=== PATIENT | male | born 1955 | race Caucasian/White ===

== ENCOUNTER → 2022-08-14 13:32 | Outpatient (CLI) | payer MEDICARE, OTHER, SELFPAY | PROVIDERS: Family Provider Internal Medicine; PCP Internal Medicine; Referring Provider Urology; Visit Provider Urology | DX: N20.0 Calculus of kidney (principal) | CPT/HCPCS: 87086 ==

== ENCOUNTER → 2022-08-25 09:11 | Outpatient (CLI) | payer MEDICARE, OTHER, SELFPAY ==
--- NOTE | 2022-08-25 | DI.US.S_ITS ---
PROCEDURE: US RENAL COMPLETE INDICATIONS: HISTORY OF NEPHROLITHIASIS. RIGHT FLANK PAIN X 3 WEEKS. TECHNIQUE: Real-time scanning was performed of the kidneys and bladder, with image documentation. COMPARISON: Outside Film, CR, XR ABDOMEN 1 VIEW, 06/26/2019, 12:05. [facility], CT, KIDNEY/ URETER/BLADDER, 03/18/2016, 12:10. FINDINGS: Kidneys: Kidneys are normal in size. Right kidney measures 12.5 cm long; left kidney measures 13.3 cm long. Right renal cortical thickness is 1.9 cm; left renal cortical thickness is 2.0 cm. Renal cortical echotexture is normal. The left kidney demonstrates moderate hydronephrosis as well as proximal left hydroureter. It persists postvoid. The right kidney demonstrates mild pelvocaliectasis as well as mild right proximal hydroureter, less prominent when compared to the left. These are persistent on postvoid images. There is appearance of a 1.9 cm calcification within the right kidney. No stones are identified on the left. Septated cyst is noted within the left kidney measuring 1.7 x 1.5 x 1.5 cm. Simple appearing smaller cyst is also noted on the left. Bladder: Pre-void bladder volume is 554 mL. Post-void residual is 122 mL. Pre-void images demonstrate no intraluminal masses or stones. On pre-void images, bilateral ureteral jets are noted with color Doppler interrogation. (Of note, ureteral jets may not be detectable in up to 25% of cases due to insufficient differences in specific gravity between ureteral and bladder urine). Miscellaneous: No free pelvic fluid. IMPRESSION: Right hydronephrosis and hydroureter persisting postvoid as well as right mild pelvocaliectasis and proximal hydroureter as described above. 1.9 cm right renal calcification is present. Septated left renal cyst. Dictated by: Rocio Hinkle M.D. on 08/25/2022 at 10:58 Approved by: Rocio Hinkle M.D. on 08/25/2022 at 11:02
== END ==
PROVIDERS: Family Provider Internal Medicine; PCP Internal Medicine; Referring Provider Urology; Visit Provider Urology
DX: N20.0 Calculus of kidney (principal); N28.1 Cyst of kidney, acquired
CPT/HCPCS: 76770

== ENCOUNTER → 2023-04-14 07:47 | Outpatient (CLI) | payer MEDICARE, OTHER, SELFPAY ==
--- NOTE | 2023-04-14 07:48 | DI.CT.S_ITS ---
PROCEDURE: CT ABDOMEN PELVIS WO CON INDICATIONS: Personal history of urinary calculi TECHNIQUE: Axial sections were acquired from the lung bases to the pubic symphysis. Coronal and sagittal reformats were performed. For radiation dose reduction, the following was used: automated exposure control, adjustment of mA and/or kV according to patient size. COMPARISON: CT 03/18/2016. FINDINGS: Image quality: Excellent. Lung bases: Unremarkable. Heart: No significant findings. URINARY: Right Kidney: 1.4 centimeter stone within the inferior pole (577 Hounsfield unit). Right Ureter: No hydroureter. Left Kidney: Layering, punctate hyperattenuating foci in the renal pelvis. Moderate hydronephrosis. Left Ureter: Moderate hydroureter. No obstructing stone at the UVJ. Bladder: 1.5 centimeter stone layering within the bladder (902 Hounsfield unit). ABDOMEN: Liver: Unremarkable. Gallbladder: Cholelithiasis without wall thickening or adjacent fat stranding to suggest acute cholecystitis. Biliary ducts: Unremarkable. Pancreas: Unremarkable. Spleen: Unremarkable. Adrenal Glands: 2 centimeter right adrenal nodule with indeterminate attenuation (19 Hounsfield unit). This is stable since 2016 and therefore statistically benign. Stomach and Bowel: Stomach, small bowel loops, and colon are unremarkable. Peritoneum: No abnormal intraperitoneal fluid. No free air. Ventral Wall: Small umbilical hernia containing fat. Abdominal Nodes: No enlarged retroperitoneal or mesenteric lymph nodes. Vessels: Aorta and inferior vena cava are normal in size. PELVIS: Pelvic Organs: Unremarkable. Pelvic Nodes: Unremarkable. Miscellaneous: No inguinal hernias are seen. Bones: Unremarkable. IMPRESSION: Moderate left-sided hydronephroureter, without visualized obstructing stone. Infection not excluded in this setting, possibly from bacteriostatic products. Correlate with urinalysis. 1.4 centimeter stone in the inferior calyx of the left kidney. 1.5 centimeter stone within the bladder. Cholelithiasis without wall thickening or adjacent fat stranding to suggest acute cholecystitis. Dictated by: Albert Khan M.D. on 04/14/2023 at 8:29 Approved by: Albert Khan M.D. on 04/14/2023 at 8:37
== END ==
PROVIDERS: Family Provider Internal Medicine; Referring Provider Urology; Visit Provider Urology
DX: N13.2 Hydronephrosis with renal and ureteral calculous obstruction (principal); N21.0 Calculus in bladder; K80.20 Calculus of gallbladder without cholecystitis without obstruction; K42.9 Umbilical hernia without obstruction or gangrene; E27.9 Disorder of adrenal gland, unspecified; Z87.442 Personal history of urinary calculi
CPT/HCPCS: 74176

== ENCOUNTER 2023-04-21 08:20 | Emergency (ER) | payer MEDICARE, OTHER, SELFPAY ==
[2023-04-21 08:29] VITALS: BP 188/95; PULSE 78; RESP 16; TEMP 36.9; O2SAT 99; BMI 40.7
[2023-04-21 08:30] VITALS: BP 169/87; PULSE 71; O2SAT 99
[2023-04-21 08:56] LABS: Appearance Urine UA CLEAR; Bilirubin Urine UA NEGATIVE (NEGATIVE); Color Urine UA YELLOW; Glucose Urine UA NEGATIVE (Negative); Ketones Urine UA NEGATIVE (NEGATIVE); Leukocyte Esterase Urine UA 1+ (NEGATIVE); Nitrite Urine UA NEGATIVE (Negative); Occult Blood Urine UA TRACE-INTACT (Negative); Protein Urine UA TRACE (Negative); Urobilinogen Urine UA 0.2 E.U./dL (0.2); pH Urine UA 5.5 (4.5-8.0)
[2023-04-21 08:58] LABS: Bacteria Urine Few (2-10); Culture Indicated Urine Specimen Cultured; RBC Urine 0-1/HPF (0-5/HPF); Squamous Epithelial Cell Urine 0-1 /HPF (0-5/HPF); WBC Urine 10-30/HPF (0-5/HPF)
--- NOTE | 2023-04-21 09:23 | ED_ITS ---
HPI - Male Genitourinary General Chief complaint: Urogenital-Male Stated complaint: kidney stone in bladder/bladder full can't urinate Time Seen by Provider: 04/21/23 08:51 History of Present Illness HPI Narrative: Patient here with . Complains of urinary retention. He states yesterday he started having dribbling with his urination at night but no discomfort. Awoke this morning unable to urinate. In the past week patient has seen a urologist/physician bilingual sales assistant Gena Palafox, CT was done April 14, 2023. Patient is on finasteride for BPH. He states his urologist prescribed him antibiotic and was supposed to pick it up yesterday. He has not done that yet. No fever chills. No back pain. Bladder scan done by nurse. Das catheter ordered. Patient states he is scheduled for procedure to remove a bladder stone in [place]. He does not know the date or the name of the procedure yet. Patient in no distress Related Data Home Medications Medication Instructions Recorded Confirmed nitrofurantoin macrocrystal 50 mg 50 mg PO BID ##0 12/01/16 capsule Review of Systems Review of Systems Narrative: GENERAL: negative chills, fatigue, malaise, fever, sweats. HEENT: negative sinus pain, ear pain, sore throat RESPIRATORY: negative dyspnea, cough CARDIOVASCULAR: negative chest pain, palpitations GASTROINTESTINAL: negative nausea, vomiting, abdominal pain : negative dysuria, frequency, hematuria, positive retention MUSCULOSKELETAL: negative muscle or bony pain SKIN: negative rash, skin lesions NEUROLOGIC: negative weakness, numbness ROS Unobtainable: All systems reviewed & are unremarkable except as noted in HPI and below Exam Narrative Exam Narrative: GENERAL: in no distress, not toxic not dyspneic HEAD: Normocephalic. EYES: Pupils equal round t. NECK: Trachea midline. CARDIOVASCULAR: Regular rate and rhythm without murmurs RESPIRATORY: Clear to auscultation. Breath sounds equal bilaterally. No wheezes, rales, or rhonchi. GASTROINTESTINAL: Abdomen soft, non-tender, abdomen soft nontender no peritoneal signs. No suprapubic tenderness. No CVA tenderness BACK: No flank tenderness. NEURO: AOx4. SKIN: Warm and dry PSYCH: Not anxious, is cooperative Initial Vital Signs Initial Vital Signs: Vital Signs Temperature 98.5 F 04/21/23 08:29 Pulse Rate 78 04/21/23 08:29 Respiratory Rate 16 04/21/23 08:29 Blood Pressure 188/95 H 04/21/23 08:29 Pulse Oximetry 99 04/21/23 08:29 Oxygen Delivery Method Room Air 04/21/23 08:29 Course Orders Ordered: Discontinued Medications Levofloxacin (Levofloxacin 250 Mg Tablet) 250 mg PO NOW ONE Stop: 04/21/23 09:21 Tamsulosin HCl (Tamsulosin 0.4 Mg Capsule) 0.4 mg PO NOW ONE Stop: 04/21/23 09:21 Vital Signs Vital signs: Vital Signs - 8 hr 04/21/23 08:29 04/21/23 08:30 04/21/23 08:30 Temperature 98.5 F Pulse Rate 78 71 Respiratory Rate 16 Blood Pressure 188/95 H 169/87 H Pulse Oximetry 99 99 Oxygen Delivery Method Room Air Room Air MDM - Male Genitourinary Lab Data Labs: Lab Results 04/21/23 Range/Units 08:30 Urine Color Yellow Urine Appearance Clear Urine pH 5.5 (4.5-8.0) Ur Specific [place] 1.020 (1.000-1.035) Urine Protein Trace H (Negative) Urine Glucose (UA) Negative (Negative) g/dL Urine Ketones Negative (NEGATIVE) Urine Occult Blood Trace-intact (Negative) Urine Nitrate Negative (Negative) Urine Bilirubin Negative (NEGATIVE) Urine Urobilinogen 0.2 (0.2) E.U./dL Ur Leukocyte Esterase 1+ H (NEGATIVE) Urine RBC 0-1/hpf (0-5/HPF) Urine WBC 10-30/hpf H (0-5/HPF) Ur Squamous Epith Cells 0-1 /hpf (0-5/HPF) Urine Bacteria Few (2-10) H (None) Ur Culture Indicated? Specimen cultured MDM Narrative Medical decision making narrative: Patient here with . Complains of urinary retention. He states yesterday he started having dribbling with his urination at night but no discomfort. Awoke this morning unable to urinate. In the past week patient has seen a urologist/physician bilingual sales assistant Gena Palafox, CT was done April 14, 2023. Patient is on finasteride for BPH. He states his urologist prescribed him antibiotic and was supposed to pick it up yesterday. He has not done that yet. No fever chills. No back pain. Bladder scan done by nurse. Das catheter ordered. Patient states he is scheduled for procedure to remove a bladder stone in [place]. He does not know the date or the name of the procedure yet. Patient in no distress After history and exam bladder scan Das catheter urinalysis MDM CC: Urinary retention Complicating co-morbidities: Recent diagnosis bladder stone Data collected from: Patient Medical records reviewed: April 14, 2023 CT scan imaging done here Differential considered: Includes but not limited to acute UTI BPH bladder stone blockage cystitis urinary retention Exam documented above, pertinent findings include: Nontender abdomen. Bladder scan showed 690 mL before Das catheter Lab Test results independently reviewed as above. Pertinent findings: Urinalysis positive leuk esterase negative nitrate WBC 10 -30 Consultations: 9:15 a.m.. Spoke with Urology on-call for patient's urologist, dr lau, place patient on antibiotics if he is not already on 1. Placed on Flomax or equivalent if not already on 1. No imaging or blood work indicated. Patient to be seen in their office this week for re-evaluation. Treatments: Das catheter Re-evaluations: 9:25 a.m.. Spoke with patient results of my discussion with urologist and urinary test today. He states he already has prescription waiting for him by his urologist you was supposed to pick it up yesterday. He is on finasteride already for BPH. Return precautions reviewed with him. Nontoxic discharge. He desires discharge home. Discussion: Appropriate for discharge home. Patient already has prescription for antibiotics provided by his urologist as well as finasteride. Return precautions reviewed with him. I did review with urologist. Patient is comfortable with plan. Feels much better at this time. He desires discharge home Diagnosis: Acute urinary retention/acute UTI Discharge Plan Departure Patient Disposition: Home Clinical Impression: Acute retention of urine, Urinary tract infection Instructions: How to Care for Your Das Catheter -- Male Activity Restrictions/Additional Instructions: Please package pick up the antibiotic prescription from the pharmacy as instructed by your urologist today. Please call her office today to schedule appointment this week. You have a Das catheter in place and will need it re-evaluated to be removed by your urologist. Dr Lau was on-call today for your urologist and has made these instructions for you. Return if worse if any questions or concerns Prescriptions: No Action nitrofurantoin macrocrystal 50 MG capsule 50 mg PO BID Qty: 0 Referrals: Gena Palafox PA-C [Non-Staff] - Provider,Humberto JACKMAN [Primary Care Provider] - Stand Alone Forms: Patient Portal/API
[2023-04-21 09:38] VITALS: BP 132/71; PULSE 67; RESP 18; O2SAT 97
--- NOTE | 2023-04-21 09:44 | PC.NURSE ---
Educated and assisted patient to switch catheter to leg bag, sterile technique utilized. Pt verbalizes understanding, states he plans to stick to leg bag.
== END 2023-04-21 09:48 | disposition home or self-care (01) ==
PROVIDERS: Emergency Provider Emergency Medicine; Family Provider Internal Medicine
DX: N39.0 Urinary tract infection, site not specified (principal); R33.9 Retention of urine, unspecified
CPT/HCPCS: 51798; 81001; 87086; 99282; 99283

== ENCOUNTER 2023-05-24 16:18 | Inpatient (IN) | payer MEDICARE, OTHER, SELFPAY ==
[2023-05-24] VITALS (15 sets, daily range): BP systolic 132–159; BP diastolic 68–81; PULSE 91–114; RESP 17–28; TEMP 37.2–39.3; O2SAT 91–97; BMI 40.6
--- NOTE | 2023-05-24 16:30 | DI.RAD.S_ITS ---
PROCEDURE: XR CHEST 1V INDICATIONS: suspected sepsis TECHNIQUE: One view of the chest was acquired. COMPARISON: [facility], , CHEST 2 VIEW, 11/24/2016, 16:38. FINDINGS: Surgical changes and devices: None. Lungs and pleura: Lungs are clear. No pleural effusions or pneumothorax. Mediastinum: Mediastinal contours appear normal. Heart size is normal. Bones and chest wall: No suspicious bony lesions. Overlying soft tissues appear unremarkable. IMPRESSION: No acute cardiopulmonary disease. Dictated by: Maritza Damon M.D. on 05/24/2023 at 16:53 Approved by: Maritza Damon M.D. on 05/24/2023 at 16:54
[2023-05-24 16:43] LABS: Add Manual Diff / Slide Review NO; Basophils Absolute Auto 100 /uL (0-100); Basophils Percent Auto 0.3 % (0-2); Eosinophils Absolute Auto 0 /uL (0-450); Hematocrit 45.4 % (41-53); Hemoglobin 15.9 g/dL (13.5-17.5); Lymphocytes Absolute Auto 500 /uL (1100-4500); Lymphocytes Percent Auto 2.6 % (25-40); Mean Corpuscular Hemoglobin 32.1 PG (26-34); Mean Corpuscular Volume 91.8 fL (80-100); Monocytes Absolute Auto 1700 /uL (0-900); Monocytes Percent Auto 8.8 % (3-14); Neutrophils Absolute Auto 16900 /uL (1500-7000); Neutrophils Percent Auto 88.3 % (50-75); Platelet Count 174 X10^3/uL (150-400); Red Blood Cell Count 4.94 X10^6/uL (4.5-5.9); Red Cell Distribution Width 13.8 % (11.6-14.8); White Blood Cell Count 19.1 X10^3/uL (4.5-11.0)
[2023-05-24 16:50] LABS: INR 1.2 (0.9-1.3); Prothrombin Time 14.1 SECONDS (10.1-12.7)
[2023-05-24] MEDS: SODIUM CHLORIDE 0.9% 1,000 ML 1000 ML IV ×2 (16:50→18:19)
[2023-05-24 16:52] LABS: PTT Partial Thromboplastin Tim 28 SECONDS (26-36)
[2023-05-24 16:54] LABS: Alanine Aminotransferase 32 IU/L (<50); Albumin 4.2 g/dL (3.5-5.0); Albumin Globulin Ratio 1.3 (1.0-2.8); Alkaline Phosphatase 125 U/L (38-126); Aspartate Aminotransferase 27 IU/L (17-59); BUN Creatinine Ratio 19.1 (6-22); Bilirubin Total 1.8 mg/dL (0.2-1.3); Blood Urea Nitrogen 17 mg/dL (9-20); Calcium 9.6 mg/dL (8.4-10.2); Carbon Dioxide 23 mmol/L (22-32); Chloride 102 mmol/L (98-107); Estimated Glomerular Filt Rate > 60 mL/min (>60); Globulin 3.3 g/dL (1.7-4.1); Glucose 177 mg/dL (80-110); HEMOLYSIS < 15 (0-50); Lactate (Lactic Acid) 1.4 mmol/L (0.7-2.1); Lipase 29 U/L (23-300); Potassium 3.8 mmol/L (3.4-5.1); Sodium 134 mmol/L (137-145); Total Protein 7.5 g/dL (6.3-8.2)
--- NOTE | 2023-05-24 17:24 | ED_ITS ---
HPI - Nausea/Vomiting/Diarrhea General Chief complaint: Nausea/Vomiting/Diarrhea Stated complaint: SENT BY [facility]/FEVER POST CATHEDAR REMOVAL/N/V/D Time Seen by Provider: 05/24/23 16:46 Source: patient Mode of arrival: Ambulatory History of Present Illness HPI Narrative: Patient is a 67-year-old male with history of BPH and recent bladder stone removal presents today with body aches fever chills generally not feeling well. He initially had a Das catheter that was placed May 01 in the ED which he says came out on its own and only lasted 1 day. Then had a procedure 2 weeks ago for a bladder stone removal he had a Das catheter placed it lasted for 2 weeks he was seen at [facility] was taken out 5 days ago. 3 days ago he started having fevers chills rigors and sweats. He is had some nausea vomiting. Significant decrease in intake. Presents today tachycardic with fever of 102. Related Data Home Medications Medication Instructions Recorded Confirmed nitrofurantoin macrocrystal 50 mg 50 mg PO BID ##0 12/01/16 capsule Allergies Allergy/AdvReac Type Severity Reaction Status Date / Time No Known Drug Allergies Allergy Verified 05/24/23 16:25 Review of Systems Review of Systems ROS Unobtainable: All systems reviewed & are unremarkable except as noted in HPI and below Patient History Social History Smoking Status: Former smoker Smoking Status: Former smoker alcohol intake frequency: a few times a month Alcohol type: beer Exam Initial Vital Signs Initial Vital Signs: Vital Signs Pulse Rate 114 H 05/24/23 16:24 Pulse Oximetry 95 05/24/23 16:24 GENERAL: Alert 67-year-old male no acute distress HEENT: Head atraumatic,EOMI, pupils reactive, face symmetric, moist mucous membranes CARDIOVASCULAR: Regular rate and rhythm without murmurs, rubs or gallops. RESPIRATORY: Breath sounds equal bilaterally, no wheezes rales or rhonchi. ABDOMEN: Soft, nontender. Normoactive bowel sounds all 4 quadrants. No guarding or rebound. : No CVA tenderness EXTREMITIES: Normal range of motion, no clubbing or edema. Neurovascularly intact NEUROLOGICAL: Alert and oriented x4. No focal deficits SKIN: Warm, dry, no laceration, no petechiae, no rashes or lesions. Course Orders Ordered: ED Orders 05/24/23 16:30 XR chest 1V Stat EKG-12 Lead Stat RT Consult Eval and Treat NOW 05/24/23 16:31 Complete Blood Count AUTO DIFF Stat Comprehensive Metabolic Panel Stat Lactate (Lactic Acid) Stat Lipase Stat PTT Partial Thromboplastin [place] Stat Procalcitonin Stat Prothrombin Time INR Stat 05/24/23 16:45 Blood Culture Stat 05/24/23 17:35 Ictotest Urine Stat Urine Culture Stat Urine Microscopic Stat Sodium Chloride (Normal Saline 0.9%) 1,000 mls @ 1,000 mls/hr IV BOLUS ONE Stop: 05/24/23 18:58 Last Admin: 05/24/23 18:19 Dose: 1,000 mls/hr Documented By: LUCY Ondansetron HCl (Ondansetron 4 Mg/2 Ml Inj) 4 mg IV NOW PRN PRN Reason: Nausea And Vomiting Ondansetron HCl (Ondansetron 4 Mg Odt) 4 mg SL NOW PRN PRN Reason: Nausea And Vomiting Discontinued Medications Sodium Chloride (Normal Saline 0.9%) 1,000 mls @ 1,000 mls/hr IV BOLUS ONE Stop: 05/24/23 17:29 Last Infusion: 05/24/23 18:19 Dose: 0 mls/hr Documented By: Admin: 05/24/23 16:50 Dose: 1,000 mls/hr Documented By: CARLOS Ceftriaxone Sodium 1,000 mg/ (Sodium Chloride) 100 mls @ 200 mls/hr IV NOW ONE Stop: 05/24/23 17:41 Last Admin: 05/24/23 18:22 Dose: 200 mls/hr Documented By: LUCY Vital Signs Vital signs: Vital Signs - 8 hr 05/24/23 16:25 05/24/23 16:24 05/24/23 16:25 Temperature 102.7 F H Pulse Rate 113 H 114 H Respiratory Rate 22 Blood Pressure 159/68 H 159/68 H Pulse Oximetry 94 95 Oxygen Delivery Method Room Air 05/24/23 16:25 05/24/23 16:30 05/24/23 16:30 Temperature Pulse Rate 114 H 114 H Respiratory Rate Blood Pressure 148/71 H Pulse Oximetry 93 94 Oxygen Delivery Method 05/24/23 16:45 05/24/23 16:58 05/24/23 16:58 Temperature Pulse Rate 108 H 103 H Respiratory Rate 24 21 Blood Pressure 133/79 Pulse Oximetry 96 92 Oxygen Delivery Method 05/24/23 17:00 05/24/23 17:00 05/24/23 17:15 Temperature Pulse Rate 104 H 101 H Respiratory Rate 28 H 22 Blood Pressure 132/80 Pulse Oximetry 93 91 Oxygen Delivery Method 05/24/23 17:30 05/24/23 17:45 Temperature Pulse Rate 104 H 98 H Respiratory Rate 19 Blood Pressure Pulse Oximetry 96 96 Oxygen Delivery Method MDM - Nausea/Vomiting/Diarrhea Lab Data 05/24/23 16:31 05/24/23 16:31 Labs: Lab Results 05/24/23 05/24/23 05/24/23 Range/Units 16:31 16:31 16:31 WBC 19.1 H (4.5-11.0) X10^3/uL RBC 4.94 (4.5-5.9) X10^6/uL Hgb 15.9 (13.5-17.5) g/dL Hct 45.4 (41-53) % MCV 91.8 (80-100) fL MCH 32.1 (26-34) PG MCHC 35.0 (30-36) % RDW 13.8 (11.6-14.8) % Plt Count 174 (150-400) X10^3/uL Neut % (Auto) 88.3 H (50-75) % Lymph % (Auto) 2.6 L (25-40) % [place] % (Auto) 8.8 (3-14) % Eos % (Auto) 0.0 L (2-4) % Baso % (Auto) 0.3 (0-2) % Neut # (Auto) 63403 H (5948-2666) /uL Lymph # (Auto) 500 L (5825-9573) /uL [place] # (Auto) 1700 H (0-900) /uL Eos # (Auto) 0 (0-450) /uL Baso # (Auto) 100 (0-100) /uL PT 14.1 H (10.1-12.7) SECONDS INR 1.2 (0.9-1.3) APTT 28 (26-36) SECONDS Sodium 134 L (137-145) mmol/L Potassium 3.8 (3.4-5.1) mmol/L Chloride 102 (98-107) mmol/L Carbon Dioxide 23 (22-32) mmol/L BUN 17 (9-20) mg/dL Creatinine 0.89 (0.66-1.25) mg/dL Estimated GFR > 60 (>60) mL/min BUN/Creatinine Ratio 19.1 (6-22) Glucose 177 H (80-110) mg/dL Lactate (0.7-2.1) mmol/L Calcium 9.6 (8.4-10.2) mg/dL Total Bilirubin 1.8 H (0.2-1.3) mg/dL AST 27 (17-59) IU/L ALT 32 (<50) IU/L Alkaline Phosphatase 125 (38-126) U/L Total Protein 7.5 (6.3-8.2) g/dL Albumin 4.2 (3.5-5.0) g/dL Globulin 3.3 (1.7-4.1) g/dL Albumin/Globulin Ratio 1.3 (1.0-2.8) Lipase 29 (23-300) U/L Procalcitonin 0.80 H (<0.5) ng/mL Ur Bilirubin Confirm (Negative) Urine RBC (0-5/HPF) Urine WBC (0-5/HPF) Ur Squamous Epith Cells (0-5/HPF) Urine Bacteria (None) 05/24/23 05/24/23 05/24/23 Range/Units 16:31 17:35 17:35 WBC (4.5-11.0) X10^3/uL RBC (4.5-5.9) X10^6/uL Hgb (13.5-17.5) g/dL Hct (41-53) % MCV (80-100) fL MCH (26-34) PG MCHC (30-36) % RDW (11.6-14.8) % Plt Count (150-400) X10^3/uL Neut % (Auto) (50-75) % Lymph % (Auto) (25-40) % [place] % (Auto) (3-14) % Eos % (Auto) (2-4) % Baso % (Auto) (0-2) % Neut # (Auto) (0680-0761) /uL Lymph # (Auto) (1657-4933) /uL [place] # (Auto) (0-900) /uL Eos # (Auto) (0-450) /uL Baso # (Auto) (0-100) /uL PT (10.1-12.7) SECONDS INR (0.9-1.3) APTT (26-36) SECONDS Sodium (137-145) mmol/L Potassium (3.4-5.1) mmol/L Chloride (98-107) mmol/L Carbon Dioxide (22-32) mmol/L BUN (9-20) mg/dL Creatinine (0.66-1.25) mg/dL Estimated GFR (>60) mL/min BUN/Creatinine Ratio (6-22) Glucose (80-110) mg/dL Lactate 1.4 (0.7-2.1) mmol/L Calcium (8.4-10.2) mg/dL Total Bilirubin (0.2-1.3) mg/dL AST (17-59) IU/L ALT (<50) IU/L Alkaline Phosphatase (38-126) U/L Total Protein (6.3-8.2) g/dL Albumin (3.5-5.0) g/dL Globulin (1.7-4.1) g/dL Albumin/Globulin Ratio (1.0-2.8) Lipase (23-300) U/L Procalcitonin (<0.5) ng/mL Ur Bilirubin Confirm Negative (Negative) Urine RBC 10-30/hpf H (0-5/HPF) Urine WBC >100/hpf H (0-5/HPF) Ur Squamous Epith Cells 1-5 /hpf (0-5/HPF) Urine Bacteria Moderate (10-30) H (None) Urine Dip Bedside Urine Glucose Negative Bedside Urine Bilirubin + 1 Bedside Urine Ketone ++ 40 Urine Specific [place] 1.020 Bedside Urine Occult Blood +++ Bedside Urine pH 6 Bedside Urine Protein ++ 100 Bedside Urine Urobilinogen - Negative Bedside Urine Nitrite + Positive Bedside Urine Leukocytes +++ 500 Esterase Imaging Data Chest x-ray: Radiologist's Impression: PROCEDURE:? XR CHEST 1V ? INDICATIONS:? suspected sepsis ? TECHNIQUE:? One view of the chest was acquired.? ? COMPARISON:? [facility], , CHEST 2 VIEW, 11/24/2016, 16:38. ? FINDINGS:? ? Surgical changes and devices:? None.? ? Lungs and pleura:? Lungs are clear.? No pleural effusions or pneumothorax.? ? Mediastinum:? Mediastinal contours appear normal.? Heart size is normal.? ? Bones and chest wall:? No suspicious bony lesions.? Overlying soft tissues appear unremarkable.? ? IMPRESSION:? No acute cardiopulmonary disease. ? ? Dictated by: Maritza Damon M.D. on 05/24/2023 at 16:53 ? ? ECG Data Interpretation: Normal sinus rhythm rate rate 108 GA interval 156 QRS [address] changes no T-wave inversions persistent Q-waves 3 AVF similar to previous EKGs MDM Narrative Medical decision making narrative: Patient 67-year-old male with recent Das catheter removed a few days ago presenting today with sepsis criteria. Febrile 102 heart rate 113. He took Tylenol prior to arrival. He is had fevers chills and rigors. He has a UTI with nitrates and blood. He is leukocytosis of 19, elevated bilirubin 1.8 normal lactic acid 1.4 elevated procalcitonin 0.8. He is only urinated a small out. Likely slightly dehydrated although no evidence of SAMIR on blood work. No evidence of severe sepsis he is not hypotensive therefore sepsis fluids were not given bit he is given IV fluids and [address] Galarza updated patient's symptoms test results and accepts patient. qSOFA (Quick SOFA) Score for Sepsis from [email or web address] on 05/24/2023 All calculations should be rechecked by clinician prior to use RESULT SUMMARY: 1 points qSOFA Score Not High Risk If sepsis is still suspected, continue to monitor, evaluate, and initiate treatment as appropriate, including serial qSOFA assessments. INPUTS: Altered mental status ?> 0 = No Respiratory rate >=2 ?> 1 = Yes Systolic BP <=00 ?> 0 = No Discharge Plan Departure Patient Disposition: Admitted As Inpatient Clinical Impression: Acute UTI
[2023-05-24 18:12] LABS: Ictotest Urine Negative (Negative)
[2023-05-24 18:15] LABS: Bacteria Urine Moderate (10-30); RBC Urine 10-30/HPF (0-5/HPF); Squamous Epithelial Cell Urine 1-5 /HPF (0-5/HPF); WBC Urine >100/HPF (0-5/HPF)
[2023-05-24] MEDS: cefTRIAXone 1,000 MG in SODIUM CHLORIDE 0.9% 100 ML 200 MG IV (18:22)
--- NOTE | 2023-05-24 19:43 | P.HP_ITS ---
History of Present Illness History of Present Illness Date Patient Seen: 05/24/23 Time Patient Seen: 20:03 Date of Onset of Symptoms: 05/19/23 Chief complaint: SENT BY [facility]/FEVER POST CATHEDAR REMOVAL/N/V/D Narrative: Patient with a Hx of recurrent UTIs due to bladder stone and enlarged prostate with chronic retention, who had bladder stone removal 2 weeks ago. He was with Das catheter up until 5 days ago. Three days ago developed fever, sweats, chills, nausea. In the past few days all of these symptoms worsened and he presented to ED tachycardic and febrile with leukocytosis. In the ED had IVFs and empiric Rocephin. [facility] Social History Smoking Status: Former smoker Meds Home Medications and Allergies Home Medications Medication Instructions Recorded Confirmed Type nitrofurantoin macrocrystal 50 mg 50 mg PO BID ##0 12/01/16 History capsule alfuzosin 10 mg tablet,extended 10 mg PO BEDTIME 05/24/23 05/24/23 History release 24 hr alfuzosin 10 mg tablet,extended 10 mg PO DAILY 05/24/23 05/24/23 History release 24 hr amlodipine 10 mg tablet 10 mg PO BEDTIME 05/24/23 05/24/23 History aspirin 81 mg tablet,delayed 81 mg PO BID 05/24/23 History release atorvastatin 40 mg tablet 40 mg PO BEDTIME 05/24/23 05/24/23 History finasteride 5 mg tablet 5 mg PO BEDTIME 05/24/23 05/24/23 History lisinopril 40 mg tablet 40 mg PO BEDTIME 05/24/23 05/24/23 History metoprolol succinate 50 mg 50 mg PO DAILY 05/24/23 05/24/23 History tablet,extended release 24 hr Allergies Allergy/AdvReac Type Severity Reaction Status Date / Time No Known Drug Allergies Allergy Verified 05/24/23 16:25 Review of Systems Constitutional Constitutional: Reports anorexia, Reports chills, Reports fever(s), Reports malaise and Reports night sweats Respiratory Respiratory: Denies stridor Gastrointestinal Gastrointestinal: Reports nausea Genitourinary Genitourinary: Reports difficulty urinating, Reports dysuria and Reports urinary frequency Exam Vital Signs (past 8 hours): - 05/24/23 16:25 05/24/23 16:24 05/24/23 16:25 Temperature 102.7 F H Pulse Rate 113 H 114 H Respiratory Rate 22 Blood Pressure 159/68 H 159/68 H Pulse Oximetry 94 95 Oxygen Delivery Method Room Air 05/24/23 16:25 05/24/23 16:30 05/24/23 16:30 Temperature Pulse Rate 114 H 114 H Respiratory Rate Blood Pressure 148/71 H Pulse Oximetry 93 94 Oxygen Delivery Method 05/24/23 16:45 05/24/23 16:58 05/24/23 16:58 Temperature Pulse Rate 108 H 103 H Respiratory Rate 24 21 Blood Pressure 133/79 Pulse Oximetry 96 92 Oxygen Delivery Method 05/24/23 17:00 05/24/23 17:00 05/24/23 17:15 Temperature Pulse Rate 104 H 101 H Respiratory Rate 28 H 22 Blood Pressure 132/80 Pulse Oximetry 93 91 Oxygen Delivery Method 05/24/23 17:30 05/24/23 17:45 05/24/23 18:00 Temperature Pulse Rate 104 H 98 H 94 H Respiratory Rate 19 17 Blood Pressure Pulse Oximetry 96 96 95 Oxygen Delivery Method 05/24/23 18:15 05/24/23 18:28 05/24/23 18:28 Temperature 99.4 F Pulse Rate 93 H 92 H Respiratory Rate 17 24 Blood Pressure 137/81 Pulse Oximetry 95 95 Oxygen Delivery Method Oxygen Delivery Method Room Air Narrative Exam Narrative: Patient seen in telemedicne visit, using an audio and video link and auscultatory sound files. Const General: cooperative and comfortable Orientation: oriented x3 HENMT Head: normal to inspection Eyes Pupils: PERRL Neck Neck: normal visual inspection Resp Effort & Inspection: normal respiratory effort and tachypneic Auscultation: clear to auscultation bilaterally Cardio Rate: tachycardic Rhythm: regular rhythm GI Inspection: normal to inspection Skin General: no rashes or lesions noted Neuro General: no focal motor deficits Cognition: normal cognition Extrem General: normal to inspection Psych Mental Status: mental status grossly normal Affect: normal affect Attitude: cooperative Objective Labs 05/24/23 16:31 05/24/23 16:31 Labs: Laboratory Results - last 24 hr 05/24/23 05/24/23 05/24/23 16:31 16:31 16:31 WBC 19.1 H RBC 4.94 Hgb 15.9 Hct 45.4 MCV 91.8 MCH 32.1 MCHC 35.0 RDW 13.8 Plt Count 174 Neut % (Auto) 88.3 H Lymph % (Auto) 2.6 L [place] % (Auto) 8.8 Eos % (Auto) 0.0 L Baso % (Auto) 0.3 Neut # (Auto) 21332 H Lymph # (Auto) 500 L [place] # (Auto) 1700 H Eos # (Auto) 0 Baso # (Auto) 100 PT 14.1 H INR 1.2 APTT 28 Sodium 134 L Potassium 3.8 Chloride 102 Carbon Dioxide 23 BUN 17 Creatinine 0.89 Estimated GFR > 60 BUN/Creatinine Ratio 19.1 Glucose 177 H Lactate Calcium 9.6 Total Bilirubin 1.8 H AST 27 ALT 32 Alkaline Phosphatase 125 Total Protein 7.5 Albumin 4.2 Globulin 3.3 Albumin/Globulin Ratio 1.3 Lipase 29 Procalcitonin 0.80 H Ur Bilirubin Confirm Urine RBC Urine WBC Ur Squamous Epith Cells Urine Bacteria 05/24/23 05/24/23 05/24/23 16:31 17:35 17:35 WBC RBC Hgb Hct MCV MCH MCHC RDW Plt Count Neut % (Auto) Lymph % (Auto) [place] % (Auto) Eos % (Auto) Baso % (Auto) Neut # (Auto) Lymph # (Auto) [place] # (Auto) Eos # (Auto) Baso # (Auto) PT INR APTT Sodium Potassium Chloride Carbon Dioxide BUN Creatinine Estimated GFR BUN/Creatinine Ratio Glucose Lactate 1.4 Calcium Total Bilirubin AST ALT Alkaline Phosphatase Total Protein Albumin Globulin Albumin/Globulin Ratio Lipase Procalcitonin Ur Bilirubin Confirm Negative Urine RBC 10-30/hpf H Urine WBC >100/hpf H Ur Squamous Epith Cells 1-5 /hpf Urine Bacteria Moderate (10-30) H Assessment & Plan Assessment and plan (1) Acute UTI: Status: Acute Plan 67 y/o with recurrent UTI, SIRS, admitted for iv abx and monitoring. At risk for sepsis. Assessment & Plan narrative: 1. Recurrent UTI - empiric Rocephin, cultures sent from the ED, pending 2. SIRS - not septic on admission but at risk - BP borderline high, however he did not take his multiple antihypertensives today - IVFs 3. Bladder Stone / BPH - urology f/u - Finasteride, Alfuzosin 10 mg hs 4. HTN - did not take antihypertensives today - at home on Toprol XL 50 mg daily, Norvasc 10 mg hs and Lisinopril 40 mg hs - had 2 l of NS bolused - borderline hypertensive and tachycardic - holding Norvasc and Lisinopril - Toprol XL in am - prn smaller dose tonight 5. Gout - allopurinol 300 mg daily 6. HLD - Lipitor DVT prophylaxis - Lovenox Time Spent With Patient Time with patient: 50 to 69 minutes with 50% spent counseling/coordinating care
[2023-05-24] MEDS: ATORVASTATIN 20 MG TABLET 40 MG PO (21:27)
[2023-05-24] MEDS: FINASTERIDE 5 MG TABLET PO (21:27)
[2023-05-24] MEDS: ACETAMINOPHEN 325 MG TABLET 650 MG PO (21:57)
[2023-05-25] VITALS (20 sets, daily range): BP systolic 138–177; BP diastolic 67–86; PULSE 83–117; RESP 16–20; TEMP 36.1–39.4; O2SAT 95–98
[2023-05-25] MEDS: IBUPROFEN 400 MG TABLET PO (00:30)
[2023-05-25] MEDS: KCL 20 MEQ IN NS 1,000 ML 100 MEQ IV ×3 (01:26→22:27)
[2023-05-25] MEDS: allopurinoL 100 MG TABLET 300 MG PO (08:16)
[2023-05-25] MEDS: ENOXAPARIN 40 MG/0.4 ML SYRINGE SUBCUT ×2 (08:16→20:27)
[2023-05-25] MEDS: METOPROLOL ER 50 MG TABLET PO (08:16)
[2023-05-25 08:52] LABS: Blood Urea Nitrogen 16 mg/dL (9-20); Calcium 9.1 mg/dL (8.4-10.2); Carbon Dioxide 28 mmol/L (22-32); Chloride 105 mmol/L (98-107); Estimated Glomerular Filt Rate > 60 mL/min (>60); Glucose 134 mg/dL (80-110); HEMOLYSIS 16 (0-50); Magnesium 1.8 mg/dL (1.6-2.3); Potassium 4.1 mmol/L (3.4-5.1); Sodium 137 mmol/L (137-145)
--- NOTE | 2023-05-25 09:30 | PM.PN.1 ---
Subjective Subjective Interval history: Patient feels marginally better with less chills today. Denies abd pain. Hematuria was present recently but has stopped. Febrile to 102.9F overnight. Exam Vital Signs (past 8 hours): - 05/25/23 03:04 05/25/23 04:24 05/25/23 08:16 Temperature 98.7 F 98.6 F Pulse Rate 83 107 H Respiratory Rate 18 Blood Pressure 138/67 177/83 H Pulse Oximetry 97 Oxygen Flow Rate 0 05/25/23 08:00 05/25/23 08:46 Temperature 97.2 F L 97.2 F L Pulse Rate 107 H 107 H Respiratory Rate 19 19 Blood Pressure 177/83 H 177/83 H Pulse Oximetry 98 98 Oxygen Flow Rate 0 0 Oxygen Delivery Method Room Air Oxygen Flow Rate 0 Narrative Exam Narrative: GEN: no acute distress, ill-appearing HEENT: moist mucous membranes, PERRL NECK: trachea midline, no JVD CV: tachycardic, no murmurs PULM: clear bilaterally ABD: soft, nontender, nondistended, no organomegaly EXT: warm and well perfused with no edema NEURO: awake, alert, oriented, no focal deficits Objective Labs 05/25/23 Unknown 05/25/23 08:30 Labs: Laboratory Results - last 24 hr 05/24/23 05/24/23 05/24/23 16:31 16:31 16:31 WBC 19.1 H RBC 4.94 Hgb 15.9 Hct 45.4 MCV 91.8 MCH 32.1 MCHC 35.0 RDW 13.8 Plt Count 174 Neut % (Auto) 88.3 H Lymph % (Auto) 2.[address] [place] % (Auto) 8.8 Eos % (Auto) 0.0 L Baso % (Auto) 0.3 Neut # (Auto) 50600 H Lymph # (Auto) [address] [place] # (Auto) 1700 H Eos # (Auto) 0 Baso # (Auto) 100 PT 14.1 H INR 1.2 APTT 28 Sodium 134 L Potassium 3.8 Chloride 102 Carbon Dioxide 23 BUN 17 Creatinine 0.89 Estimated GFR > 60 BUN/Creatinine Ratio 19.1 Glucose 177 H Lactate Calcium 9.6 Magnesium Total Bilirubin 1.8 H AST 27 ALT 32 Alkaline Phosphatase 125 Total Protein 7.5 Albumin 4.2 Globulin 3.3 Albumin/Globulin Ratio 1.3 Lipase 29 Procalcitonin 0.80 H Ur Bilirubin Confirm Urine RBC Urine WBC Ur Squamous Epith Cells Urine Bacteria 05/24/23 05/24/23 05/24/23 16:31 17:35 17:35 WBC RBC Hgb Hct MCV MCH MCHC RDW Plt Count Neut % (Auto) Lymph % (Auto) [place] % (Auto) Eos % (Auto) Baso % (Auto) Neut # (Auto) Lymph # (Auto) [place] # (Auto) Eos # (Auto) Baso # (Auto) PT INR APTT Sodium Potassium Chloride Carbon Dioxide BUN Creatinine Estimated GFR BUN/Creatinine Ratio Glucose Lactate 1.4 Calcium Magnesium Total Bilirubin AST ALT Alkaline Phosphatase Total Protein Albumin Globulin Albumin/Globulin Ratio Lipase Procalcitonin Ur Bilirubin Confirm Negative Urine RBC 10-30/hpf H Urine WBC >100/hpf H Ur Squamous Epith Cells 1-5 /hpf Urine Bacteria Moderate (10-30) H 05/25/23 08:30 WBC RBC Hgb Hct MCV MCH MCHC RDW Plt Count Neut % (Auto) Lymph % (Auto) [place] % (Auto) Eos % (Auto) Baso % (Auto) Neut # (Auto) Lymph # (Auto) [place] # (Auto) Eos # (Auto) Baso # (Auto) PT INR APTT Sodium 137 Potassium 4.1 Chloride 105 Carbon Dioxide 28 BUN 16 Creatinine 0.80 Estimated GFR > 60 BUN/Creatinine Ratio 20.0 Glucose 134 H Lactate Calcium 9.1 Magnesium 1.8 Total Bilirubin AST ALT Alkaline Phosphatase Total Protein Albumin Globulin Albumin/Globulin Ratio Lipase Procalcitonin Ur Bilirubin Confirm Urine RBC Urine WBC Ur Squamous Epith Cells Urine Bacteria PFSH Social History household members: spouse Smoking Status: Former smoker Assessment & Plan Assessment & Plan narrative: 1. Acute pyelonephritis -UA with >100 WBC, febrile to 102.9F, urine culture with very early growth -CT KUB with left perinephric stranding, stent in place with persistent mod hydroureteronephrosis, occulded stent cannot be ruled out. 2.5cm non-obstructing stone in right kidney. -spoke with urology who said hydroureter could be chronic, obtain renal US to eval for left ureteral jet- no left ureteral jet seen -continue rocephin 2g daily, will likely treat with abx for 10 days total -f/u urine cultures, blood cutlures NG at 24 hours 2. Sepsis -initially febrile, tachy, with leukocytosis -source urinary -treat pyelo as above 3. Bladder Stone / BPH -recently removed bladder stone by [facility] urology -continue finasteride, Alfuzosin 10 mg hs 4. HTN -holding Norvasc and Lisinopril -continue Toprol XL 5. Gout -continue home allopurinol 300 mg daily 6. HLD -continue home lipitor Code status: Full code DVT prophylaxis: Lovenox I have discussed with the hospital multidisciplinary care team including social work rounds. Dispo: Home in 2 days pending improvement in pyelo and urine culture results. Time Spent With Patient Time with patient: 50 to 69 minutes with 50% spent counseling/coordinating care
[2023-05-25 09:37] LABS: Add Manual Diff / Slide Review NO; Basophils Absolute Auto 0 /uL (0-100); Basophils Percent Auto 0.3 % (0-2); Eosinophils Absolute Auto 0 /uL (0-450); Eosinophils Percent Auto 0.3 % (2-4); Hematocrit 44.2 % (41-53); Lymphocytes Absolute Auto 900 /uL (1100-4500); Lymphocytes Percent Auto 5.8 % (25-40); Mean Corpuscular HGB Conc 34.1 % (30-36); Mean Corpuscular Hemoglobin 31.6 PG (26-34); Mean Corpuscular Volume 92.7 fL (80-100); Monocytes Absolute Auto 1700 /uL (0-900); Monocytes Percent Auto 11.2 % (3-14); Neutrophils Absolute Auto 12200 /uL (1500-7000); Neutrophils Percent Auto 82.4 % (50-75); Platelet Count 163 X10^3/uL (150-400); Red Blood Cell Count 4.76 X10^6/uL (4.5-5.9); Red Cell Distribution Width 13.9 % (11.6-14.8); White Blood Cell Count 14.9 X10^3/uL (4.5-11.0)
[2023-05-25 09:57] LABS: Procalcitonin 4.21 ng/mL (<0.5)
[2023-05-25] MEDS: cefTRIAXone 2,000 MG in SODIUM CHLORIDE 0.9% 100 ML 200 MG IV (10:12)
[2023-05-25] MEDS: ACETAMINOPHEN 325 MG TABLET 650 MG PO ×2 (12:52→20:27)
--- NOTE | 2023-05-25 13:08 | DI.CT.S_ITS ---
PROCEDURE: CT KIDNEY URETER BLADDER (KUB) INDICATIONS: pyelonephritis, h/o kidney stones TECHNIQUE: Axial sections were acquired from the lung bases to the pubic symphysis. Coronal and sagittal reformats were performed. For radiation dose reduction, the following was used: automated exposure control, adjustment of mA and/or kV according to patient size. COMPARISON: [facility], CT, CT ABDOMEN PELVIS WO CON, 04/14/2023, 7:54. [facility], CT, KIDNEY/ URETER/BLADDER, 03/18/2016, 12:10. FINDINGS: Image quality: Excellent. Lung bases: Scarring/atelectasis in posterior aspect of bilateral lung bases are seen.. Heart: Heart size is normal, no pericardial effusion. Atherosclerotic calcifications are noted in coronary vessels. Small hiatal hernia is seen. URINARY: Right Kidney: Nonobstructing stones are again noted in mid to lower pole right kidney measures up to 1.1 cm in size and 1097 Hounsfield unit in density series 2, image 42. No hydronephrosis. Mild right perinephric fat stranding is seen. Right Ureter: No hydroureter Left Kidney: There is interval placement of a left-sided ureteral stent. Moderate left-sided hydronephrosis and left perinephric fat stranding is seen. No obstructing stone is noted. Left Ureter: Moderate left hydroureter extending to the level of left UVJ without discrete ureteral stone seen. Bladder: Normal wall thickness. No stones. Previously noted bladder wall stone is no longer present. ABDOMEN: Liver: Unremarkable. Gallbladder: Numerous calcifications are seen in dependent portion of gallbladder lumen. No gallbladder wall thickening. Biliary ducts: Unremarkable. Pancreas: Unremarkable. Spleen: Unremarkable. Adrenal Glands: Unremarkable. Stomach and Bowel: Stomach, small bowel loops, and colon are unremarkable. There is prior appendectomy. Peritoneum: No abnormal intraperitoneal fluid. No free air. Ventral Wall: No hernia. Abdominal Nodes: No enlarged retroperitoneal or mesenteric lymph nodes. Vessels: Aorta and inferior vena cava are normal in size. PELVIS: Pelvic Organs: Calcifications within prostate gland are again seen unchanged from prior study.. Pelvic Nodes: Unremarkable. Miscellaneous: No inguinal hernias are seen. Bones: No suspicious bony lesions. No acute vertebral body compression fracture. IMPRESSION: 1. Interval placement of left-sided ureteral stent. Persistent moderate left-sided hydronephrosis and hydroureter concerning for occluded stent suggest urological correlation. 2. Left worse than right bilateral perinephric fat stranding. No right-sided hydronephrosis. Nonobstructing right renal calculi. Partly nephritis cannot be excluded. 3. Urinary bladder is within normal limits. Previously described bladder stone is no longer seen. 4. No bowel obstruction or abnormal bowel wall thickening. No free fluid or free air. 5. Suggestion of cholelithiasis without CT evidence of acute cholecystitis. Dictated by: Slim Ballesteros M.D. on 05/25/2023 at 14:07 Approved by: Slim Ballesteros M.D. on 05/25/2023 at 14:25
--- NOTE | 2023-05-25 14:52 | DI.US.S_ITS ---
PROCEDURE: US RENAL COMPLETE INDICATIONS: PERSISTENT LEFT HYDROURETER. PLEASE LOOK AT URETERAL JETS TECHNIQUE: Real-time scanning was performed of the kidneys and bladder, with image documentation. COMPARISON: [facility], US, US RENAL COMPLETE, 08/25/2022, 9:35. [facility], CT, CT KIDNEY URETER BLADDER (KUB), 05/25/2023, 13:25. FINDINGS: Kidneys: Kidneys are normal in size. Right kidney measures 14.2 cm long; left kidney measures 13.9 cm long. Right renal cortical thickness is 1.9 cm; left renal cortical thickness is 1.8 cm. Renal cortical echotexture is normal. No suspicious solid mass lesions. There is moderate left-sided hydronephrosis. There is a left ureteral stent present. No right-sided hydronephrosis is seen. At the inferior aspect of the right kidney, there is a 2.5 cm stone seen. There is a septated cyst seen within the left kidney that measures 1.6 cm. Bladder: Pre-void bladder volume is 163 mL. Post-void residual is 15 mL. Pre-void images demonstrate no intraluminal masses or stones. On pre-void images, only the right ureteral jet can be seen with color Doppler interrogation. (Of note, ureteral jets may not be detectable in up to 25% of cases due to insufficient differences in specific gravity between ureteral and bladder urine). Miscellaneous: No free pelvic fluid. IMPRESSION: There is moderate left-sided hydronephrosis, with a left-sided stent in place. The left ureteral jet is not seen. The right ureteral jet is seen. Mild postvoid residual, 15 cc. A nonobstructing right-sided kidney stone is seen, 2.5 cm. A septated cyst is seen within the left kidney, measuring 1.6 cm. Dictated by: Pietro Mi M.D. on 05/25/2023 at 16:13 Approved by: Pietro Mi M.D. on 05/25/2023 at 16:16
[2023-05-25] MEDS: ATORVASTATIN 20 MG TABLET 40 MG PO (20:27)
[2023-05-25] MEDS: FINASTERIDE 5 MG TABLET PO (20:27)
[2023-05-26] VITALS (11 sets, daily range): BP systolic 121–144; BP diastolic 72–91; PULSE 90–116; RESP 18–19; TEMP 35.2–38.7; O2SAT 96–99
[2023-05-26 06:07] LABS: Add Manual Diff / Slide Review NO; Basophils Absolute Auto 0 /uL (0-100); Basophils Percent Auto 0.3 % (0-2); Eosinophils Absolute Auto 0 /uL (0-450); Eosinophils Percent Auto 0.4 % (2-4); Hematocrit 44.8 % (41-53); Hemoglobin 15.2 g/dL (13.5-17.5); Lymphocytes Absolute Auto 1300 /uL (1100-4500); Lymphocytes Percent Auto 9.5 % (25-40); Mean Corpuscular Hemoglobin 31.2 PG (26-34); Mean Corpuscular Volume 91.9 fL (80-100); Monocytes Absolute Auto 1700 /uL (0-900); Monocytes Percent Auto 12.6 % (3-14); Neutrophils Absolute Auto 10300 /uL (1500-7000); Neutrophils Percent Auto 77.2 % (50-75); Platelet Count 161 X10^3/uL (150-400); Red Blood Cell Count 4.87 X10^6/uL (4.5-5.9); Red Cell Distribution Width 13.6 % (11.6-14.8); White Blood Cell Count 13.3 X10^3/uL (4.5-11.0)
[2023-05-26] MEDS: ACETAMINOPHEN 325 MG TABLET 650 MG PO ×2 (06:08→20:21)
[2023-05-26 06:17] LABS: BUN Creatinine Ratio 18.7 (6-22); Blood Urea Nitrogen 14 mg/dL (9-20); Carbon Dioxide 25 mmol/L (22-32); Chloride 103 mmol/L (98-107); Estimated Glomerular Filt Rate > 60 mL/min (>60); Glucose 116 mg/dL (80-110); HEMOLYSIS < 15 (0-50); Potassium 3.9 mmol/L (3.4-5.1); Sodium 134 mmol/L (137-145)
[2023-05-26 06:35] LABS: Procalcitonin 3.02 ng/mL (<0.5)
[2023-05-26] MEDS: CEFEPIME 2 GM in SODIUM CHLORIDE 0.9% 100 ML IV ×2 (08:01→18:45)
[2023-05-26] MEDS: VANCOMYCIN PER PHARMACY 1 REQUEST MISC (08:04)
[2023-05-26] MEDS: ENOXAPARIN 40 MG/0.4 ML SYRINGE SUBCUT ×2 (09:03→20:21)
[2023-05-26] MEDS: allopurinoL 100 MG TABLET 300 MG PO (09:03)
[2023-05-26] MEDS: METOPROLOL ER 50 MG TABLET PO (09:04)
[2023-05-26] MEDS: VANCOMYCIN 1,750 MG in SODIUM CHLORIDE 0.9% 500 ML 250 MG IV ×2 (09:55→20:22)
--- NOTE | 2023-05-26 15:56 | CM.DPC ---
DCP COntinued: HEALTH EDUCATION ASSISTANT reviewed EMR. HEALTH EDUCATION ASSISTANT entered room and introduced self and role. Patient reports feeling much better but is worried about overnight getting a fever again. Reports no needs from CM team at this time. Patient has a supportive family that can assist. Plan: patient will d/c home with family when medically stable. CM team will continue to follow as needed. CHANNING Guido
--- NOTE | 2023-05-26 17:19 | PM.PN.1 ---
Subjective Subjective Interval history: Patient febrile overnight despite IV abx. Urine culture growing GNR's. Spoke with urology again who doesn't think possible occluded stent is contributing to persistent fevers. Exam Vital Signs (past 8 hours): - 05/26/23 13:00 05/26/23 16:55 Temperature 96.7 F L 97.3 F L Pulse Rate 97 H 97 H Respiratory Rate 18 18 Blood Pressure 125/90 133/85 Pulse Oximetry 98 99 Oxygen Delivery Method Room Air Oxygen Flow Rate 0 Narrative Exam Narrative: GEN: no acute distress, ill-appearing HEENT: moist mucous membranes, PERRL NECK: trachea midline, no JVD CV: tachycardic, no murmurs PULM: clear bilaterally ABD: soft, nontender, nondistended, no organomegaly EXT: warm and well perfused with no edema NEURO: awake, alert, oriented, no focal deficits Objective Labs 05/26/23 05:30 05/26/23 05:30 Labs: Laboratory Results - last 24 hr 05/26/23 05/26/23 05/26/23 05:30 05:30 05:30 WBC 13.3 H RBC 4.87 Hgb 15.2 Hct 44.8 MCV 91.9 MCH 31.2 MCHC 34.0 RDW 13.6 Plt Count 161 Neut % (Auto) 77.2 H Lymph % (Auto) 9.5 L [place] % (Auto) 12.6 Eos % (Auto) 0.4 L Baso % (Auto) 0.3 Neut # (Auto) 00360 H Lymph # (Auto) 1300 [place] # (Auto) 1700 H Eos # (Auto) 0 Baso # (Auto) 0 Sodium 134 L Potassium 3.9 Chloride 103 Carbon Dioxide 25 BUN 14 Creatinine 0.75 Estimated GFR > 60 BUN/Creatinine Ratio 18.7 Glucose 116 H Calcium 9.0 Procalcitonin 3.02 H PFSH Social History household members: spouse Smoking Status: Former smoker Assessment & Plan Assessment & Plan narrative: 1. Acute pyelonephritis -UA with >100 WBC, febrile to 102.9F -CT KUB with left perinephric stranding, stent in place with persistent mod hydroureteronephrosis, occulded stent cannot be ruled out. 2.5cm non-obstructing stone in right kidney. -spoke with urology who said hydroureter could be chronic, obtain renal US to eval for left ureteral jet- no left ureteral jet seen -persisent fevers to 102F overnight while on rocephin -stopped rocephin due to persistent fevers, expanded to cefepime and vanc for pseudomonal and enterococcus coverage -urine culture with >100k GNR, f/u speciation -blood cultures NG at 48 hours 2. Sepsis, improving -initially febrile, tachy, with leukocytosis -source urinary -treat pyelo as above -WBC downtrending but fevers persist 3. Bladder Stone / BPH -recently removed bladder stone by [facility] urology -continue finasteride, Alfuzosin 10 mg hs 4. HTN -holding Norvasc and Lisinopril -continue Toprol XL 5. Gout -continue home allopurinol 300 mg daily 6. HLD -continue home lipitor Code status: Full code DVT prophylaxis: Lovenox I have discussed with the hospital multidisciplinary care team including social work rounds. Dispo: Home in 2 days pending improvement in pyelo and fevers. Time Spent With Patient Time with patient: 50 to 69 minutes with 50% spent counseling/coordinating care
[2023-05-26] MEDS: SENNOSIDES 8.6 MG TABLET 17.2 MG PO (20:20)
[2023-05-26] MEDS: ATORVASTATIN 20 MG TABLET 40 MG PO (20:21)
[2023-05-26] MEDS: FINASTERIDE 5 MG TABLET PO (20:21)
[2023-05-26] MEDS: KCL 20 MEQ IN NS 1,000 ML 100 MEQ IV (23:30)
[2023-05-27 04:00] VITALS: BP 137/89; PULSE 80; RESP 19; TEMP 36.5; O2SAT 99
[2023-05-27 06:28] LABS: Add Manual Diff / Slide Review NO; Basophils Absolute Auto 0 /uL (0-100); Basophils Percent Auto 0.6 % (0-2); Eosinophils Absolute Auto 300 /uL (0-450); Eosinophils Percent Auto 3.2 % (2-4); Hematocrit 41.7 % (41-53); Hemoglobin 14.4 g/dL (13.5-17.5); Lymphocytes Absolute Auto 1300 /uL (1100-4500); Lymphocytes Percent Auto 16.4 % (25-40); Mean Corpuscular HGB Conc 34.4 % (30-36); Mean Corpuscular Volume 92.8 fL (80-100); Monocytes Absolute Auto 800 /uL (0-900); Monocytes Percent Auto 10.1 % (3-14); Neutrophils Absolute Auto 5700 /uL (1500-7000); Neutrophils Percent Auto 69.7 % (50-75); Platelet Count 159 X10^3/uL (150-400); Red Cell Distribution Width 13.6 % (11.6-14.8); White Blood Cell Count 8.2 X10^3/uL (4.5-11.0)
[2023-05-27 06:36] LABS: BUN Creatinine Ratio 21.4 (6-22); Blood Urea Nitrogen 15 mg/dL (9-20); Carbon Dioxide 25 mmol/L (22-32); Chloride 108 mmol/L (98-107); Estimated Glomerular Filt Rate > 60 mL/min (>60); Glucose 106 mg/dL (80-110); HEMOLYSIS < 15 (0-50); Potassium 3.9 mmol/L (3.4-5.1); Sodium 138 mmol/L (137-145)
[2023-05-27 06:49] LABS: Procalcitonin 1.86 ng/mL (<0.5)
[2023-05-27 08:00] VITALS: BP 128/95; PULSE 97; RESP 16; TEMP 36.6; O2SAT 97
[2023-05-27] MEDS: CEFEPIME 2 GM in SODIUM CHLORIDE 0.9% 100 ML IV ×2 (08:44→18:44)
[2023-05-27 08:45] VITALS: BP 128/95; PULSE 115
[2023-05-27] MEDS: METOPROLOL ER 50 MG TABLET PO (08:45)
[2023-05-27] MEDS: allopurinoL 100 MG TABLET 300 MG PO (08:46)
[2023-05-27] MEDS: ENOXAPARIN 40 MG/0.4 ML SYRINGE SUBCUT ×2 (09:28→20:38)
[2023-05-27] MEDS: KCL 20 MEQ IN NS 1,000 ML 100 MEQ IV ×2 (11:41→21:25)
[2023-05-27 12:17] VITALS: BP 130/70; PULSE 83; RESP 16; TEMP 36.3; O2SAT 97
--- NOTE | 2023-05-27 13:55 | PM.PN.1 ---
Subjective Subjective Interval history: Patient's urine culture growing pseudomonas sensitive to cefepime and cipro. He was afebrile overnight. He feels like he needs one more day and can go home tomorrow. Exam Vital Signs (past 8 hours): - 05/27/23 08:45 05/27/23 08:00 05/27/23 12:17 Temperature 97.8 F 97.4 F L Pulse Rate 115 H 97 H 83 Respiratory Rate 16 16 Blood Pressure 128/95 H 128/95 H 130/70 Pulse Oximetry 97 97 Oxygen Delivery Method Room Air Oxygen Flow Rate 0 Narrative Exam Narrative: GEN: no acute distress, ill-appearing HEENT: moist mucous membranes, PERRL NECK: trachea midline, no JVD CV: tachycardic, no murmurs PULM: clear bilaterally ABD: soft, nontender, nondistended, no organomegaly EXT: warm and well perfused with no edema NEURO: awake, alert, oriented, no focal deficits Objective Labs 05/27/23 05:20 05/27/23 05:20 Labs: Laboratory Results - last 24 hr 05/27/23 05/27/23 05/27/23 05:20 05:20 05:20 WBC 8.2 RBC 4.50 Hgb 14.4 Hct 41.7 MCV 92.8 MCH 32.0 MCHC 34.4 RDW 13.6 Plt Count 159 Neut % (Auto) 69.7 Lymph % (Auto) 16.4 L [place] % (Auto) 10.1 Eos % (Auto) 3.2 Baso % (Auto) 0.6 Neut # (Auto) 5700 Lymph # (Auto) 1300 [place] # (Auto) 800 Eos # (Auto) 300 Baso # (Auto) 0 Sodium 138 Potassium 3.9 Chloride 108 H Carbon Dioxide 25 BUN 15 Creatinine 0.70 Estimated GFR > 60 BUN/Creatinine Ratio 21.4 Glucose 106 Calcium 9.0 Procalcitonin 1.86 H PFSH Social History household members: spouse Smoking Status: Former smoker Assessment & Plan Assessment & Plan narrative: 1. Acute pyelonephritis -UA with >100 WBC, febrile to 102.9F -CT KUB with left perinephric stranding, stent in place with persistent mod hydroureteronephrosis, occulded stent cannot be ruled out. 2.5cm non-obstructing stone in right kidney. -spoke with urology who said hydroureter could be chronic, obtain renal US to eval for left ureteral jet- no left ureteral jet seen -persisent fevers to 102F overnight while on rocephin -stopped rocephin due to persistent fevers, expanded to cefepime and vanc for pseudomonal and enterococcus coverage -urine culture with pseudomonas sensitive to cefepime and cirpo, stopped vanc -blood cultures NG at 48 hours -will dc on po cipro when ready 2. Sepsis, improving -initially febrile, tachy, with leukocytosis -source urinary -treat pyelo as above -WBC downtrending and now afebrile 3. Bladder Stone / BPH -recently removed bladder stone by [facility] urology -continue finasteride, Alfuzosin 10 mg hs 4. HTN -holding Norvasc and Lisinopril -continue Toprol XL 5. Gout -continue home allopurinol 300 mg daily 6. HLD -continue home lipitor Code status: Full code DVT prophylaxis: Lovenox I have discussed with the hospital multidisciplinary care team including social work rounds. Dispo: Home on 05/28. Time Spent With Patient Time with patient: 50 to 69 minutes with 50% spent counseling/coordinating care
[2023-05-27 16:00] VITALS: BP 124/80; PULSE 102; RESP 20; TEMP 36.6; O2SAT 97
[2023-05-27 19:23] VITALS: BP 134/89; PULSE 105; RESP 17; TEMP 36.6; O2SAT 97
[2023-05-27] MEDS: FINASTERIDE 5 MG TABLET PO (20:36)
[2023-05-27] MEDS: ATORVASTATIN 20 MG TABLET 40 MG PO (20:36)
[2023-05-28 03:00] VITALS: BP 116/85; PULSE 105; RESP 16; TEMP 36.3; O2SAT 97
[2023-05-28 04:52] LABS: Add Manual Diff / Slide Review NO; Basophils Absolute Auto 100 /uL (0-100); Basophils Percent Auto 0.8 % (0-2); Eosinophils Absolute Auto 300 /uL (0-450); Eosinophils Percent Auto 5.1 % (2-4); Hematocrit 40.3 % (41-53); Lymphocytes Absolute Auto 1200 /uL (1100-4500); Lymphocytes Percent Auto 18.5 % (25-40); Mean Corpuscular HGB Conc 34.7 % (30-36); Mean Corpuscular Hemoglobin 31.8 PG (26-34); Mean Corpuscular Volume 91.7 fL (80-100); Monocytes Absolute Auto 500 /uL (0-900); Monocytes Percent Auto 7.7 % (3-14); Neutrophils Absolute Auto 4500 /uL (1500-7000); Neutrophils Percent Auto 67.9 % (50-75); Platelet Count 175 X10^3/uL (150-400); Red Blood Cell Count 4.39 X10^6/uL (4.5-5.9); Red Cell Distribution Width 13.7 % (11.6-14.8); White Blood Cell Count 6.6 X10^3/uL (4.5-11.0)
[2023-05-28 05:09] LABS: BUN Creatinine Ratio 18.7 (6-22); Blood Urea Nitrogen 14 mg/dL (9-20); Calcium 9.2 mg/dL (8.4-10.2); Carbon Dioxide 28 mmol/L (22-32); Chloride 108 mmol/L (98-107); Estimated Glomerular Filt Rate > 60 mL/min (>60); Glucose 106 mg/dL (80-110); HEMOLYSIS < 15 (0-50); Potassium 4.1 mmol/L (3.4-5.1); Sodium 139 mmol/L (137-145)
[2023-05-28 05:26] LABS: Procalcitonin 1.16 ng/mL (<0.5)
[2023-05-28 07:00] VITALS: BP 143/89; PULSE 73; RESP 18; TEMP 36.2; O2SAT 95
[2023-05-28] MEDS: CEFEPIME 2 GM in SODIUM CHLORIDE 0.9% 100 ML IV (07:33)
[2023-05-28] MEDS: ENOXAPARIN 40 MG/0.4 ML SYRINGE SUBCUT (08:28)
[2023-05-28] MEDS: KCL 20 MEQ IN NS 1,000 ML 100 MEQ IV (08:28)
[2023-05-28 08:29] VITALS: BP 143/81
[2023-05-28] MEDS: METOPROLOL ER 50 MG TABLET PO (08:29)
[2023-05-28] MEDS: allopurinoL 100 MG TABLET 300 MG PO (08:29)
--- NOTE | 2023-05-28 09:45 | P.DS_ITS ---
History of Present Illness History of Present Illness Date Patient Seen: 05/24/23 Time Patient Seen: 20:03 Date of Onset of Symptoms: 05/19/23 Chief complaint: SENT BY [facility]/FEVER POST CATHEDAR REMOVAL/N/V/D Narrative: Patient with a Hx of recurrent UTIs due to bladder stone and enlarged prostate with chronic retention, who had bladder stone removal 2 weeks ago. He was with Das catheter up until 5 days ago. Three days ago developed fever, sweats, chills, nausea. In the past few days all of these symptoms worsened and he presented to ED tachycardic and febrile with leukocytosis. In the ED had IVFs and empiric Rocephin. Discharge Providers Provider Date of admission: 05/24/23 18:32 Discharge Date: 05/28/23 Primary care physician: Humberto JACKMAN Provider Discharge provider: Jeremiah Elder DO Summary Hospital Course Discharge Diagnosis: 1. Acute pyelonephritis -UA with >100 WBC, febrile to 102.9F -CT KUB with left perinephric stranding, stent in place with persistent mod hydroureteronephrosis, occulded stent cannot be ruled out. 2.5cm non-obstructing stone in right kidney. -spoke with urology who said hydroureter could be chronic, obtain renal US to eval for left ureteral jet- no left ureteral jet seen -persisent fevers to 102F overnight while on rocephin -stopped rocephin due to persistent fevers, expanded to cefepime and vanc for pseudomonal and enterococcus coverage -urine culture with pseudomonas sensitive to cefepime and Cipro, stopped vanc -blood cultures NG at 48 hours -will dc on po cipro x7 days 2. Sepsis, improving -initially febrile, tachy, with leukocytosis -source urinary -treat pyelo as above -WBC downtrending and now afebrile 3. Bladder Stone / BPH -recently removed bladder stone by [facility] urology -continue finasteride, Alfuzosin 10 mg hs 4. HTN -holding Norvasc and Lisinopril -continue Toprol XL 5. Gout -continue home allopurinol 300 mg daily 6. HLD -continue home lipitor Hospital Course: Admitted for acute sepsis secondary to pyelonephritis. Placed on Rocephin and his fevers continued so antibiotics were broadened into cefepime and vancomycin. His fevers resolved and his urine culture ended up growing Pseudomonas sensitive to cefepime and ciprofloxacin. Discharged on 1 more week of oral Cipro. He will have his ureteral stent removed by Urology at [facility] on June 14. Time Spent with Patient Time spent: Greater than 30 minutes Exam Vital Signs (past 8 hours): - 05/28/23 03:00 05/28/23 08:29 05/28/23 07:00 Temperature 97.3 F L 97.2 F L Pulse Rate 105 H 73 Respiratory Rate 16 18 Blood Pressure 116/85 143/81 H 143/89 H Pulse Oximetry 97 95 Oxygen Flow Rate 0 0 Oxygen Delivery Method Room Air Oxygen Flow Rate 0 Narrative Exam Narrative: GEN: no acute distress HEENT: moist mucous membranes, PERRL NECK: trachea midline, no JVD CV: tachycardic, no murmurs PULM: clear bilaterally ABD: soft, nontender, nondistended, no organomegaly EXT: warm and well perfused with no edema NEURO: awake, alert, oriented, no focal deficits Objective Labs 05/28/23 04:45 05/28/23 04:45 Labs: Laboratory Results - last 24 hr 05/28/23 05/28/23 05/28/23 04:45 04:45 04:45 WBC 6.6 RBC 4.39 L Hgb 14.0 Hct 40.3 L MCV 91.7 MCH 31.8 MCHC 34.7 RDW 13.7 Plt Count 175 Neut % (Auto) 67.9 Lymph % (Auto) 18.5 L [place] % (Auto) 7.7 Eos % (Auto) 5.1 H Baso % (Auto) 0.8 Neut # (Auto) 4500 Lymph # (Auto) 1200 [place] # (Auto) 500 Eos # (Auto) 300 Baso # (Auto) 100 Sodium 139 Potassium 4.1 Chloride 108 H Carbon Dioxide 28 BUN 14 Creatinine 0.75 Estimated GFR > 60 BUN/Creatinine Ratio 18.7 Glucose 106 Calcium 9.2 Procalcitonin 1.16 H PFSH Social History household members: spouse Smoking Status: Former smoker Discharge Plan Discharge Plan Patient Disposition: Home Provider Discharge Comment: You were found to have pseudomonas urinary tract infection which improved with IV antibiotics. You will now need to finish a 1 week course of oral antibiotics at home. Discharge orders & Medications Prescriptions: New ciprofloxacin HCl [Cipro] 500 mg tablet 500 mg PO BID 7 Days Qty: 14 0RF Continued atorvastatin 40 mg tablet 40 mg PO BEDTIME metoprolol succinate 50 mg tablet extended release 24 hr 50 mg PO DAILY aspirin 81 mg tablet,delayed release (DR/EC) 81 mg PO BID amlodipine 10 mg tablet 10 mg PO BEDTIME lisinopril 40 mg tablet 40 mg PO BEDTIME finasteride 5 mg tablet 5 mg PO BEDTIME alfuzosin 10 mg tablet extended release 24 hr 10 mg PO BEDTIME allopurinol 300 mg tablet 300 mg PO DAILY Follow up/Referrals: Provider,Humberto JACKMAN [Primary Care Provider] - 2 Weeks Visit Report/Discharge Packet Instructions: Urinary Tract Infection, How to Prevent Falls Stand Alone Forms: Patient Portal/API, Stroke Signs & Symptoms Discharge Data Primary Care Provider: Humberto Aguillon Discharges patient from system. Discharge Date/Time: 05/28/23 13:19
[2023-05-28 09:56] VITALS: BP 139/87
--- NOTE | 2023-05-28 13:20 | PC.NURSE ---
Day shift: Discharge instructions gone over with patient and patient's spouse. Pt stated understanding and all questions answered. PIV d/c'ed prior to discharge. Escorted pt to exit via wheelchair at 1320.
== END 2023-05-28 13:19 | disposition home or self-care (01) | DRG 689 ==
LOC: ED 17:53 → AC 18:33
PROVIDERS: Internal Medicine; Student in an Organized Health Care Education/Training Program; Admitting Provider Neuromusculoskeletal Medicine, Sports Medicine; Emergency Provider Emergency Medicine; Family Provider Internal Medicine; Referring Provider Emergency Medicine; Visit Provider Neuromusculoskeletal Medicine, Sports Medicine
DX: N13.6 Pyonephrosis (principal); A41.9 Sepsis, unspecified organism; N40.1 Benign prostatic hyperplasia with lower urinary tract symptoms; N21.0 Calculus in bladder; I10 Essential (primary) hypertension; M10.9 Gout, unspecified; E78.5 Hyperlipidemia, unspecified; B96.5 Pseudomonas (aeruginosa) (mallei) (pseudomallei) as the cause of diseases classified elsewhere; Z87.891 Personal history of nicotine dependence
CPT/HCPCS: 36415; 51798; 71045; 74176; 76770; 80048; 80053; 81003; 81015; 83605; 83690; 83735; 84145; 85025; 85610; 85730; 87040; 87077; 87086; 87186; 93005; 96365; 99284; J0692; J0696; J1650

== ENCOUNTER → 2023-09-13 08:25 | Outpatient (CLI) | payer MEDICARE, OTHER, SELFPAY ==
[2023-05-24 21:17] VITALS: BMI 40.6
[2023-09-13 09:43] LABS: Add Manual Diff / Slide Review NO; Basophils Absolute Auto 0 /uL (0-100); Basophils Percent Auto 0.4 % (0-2); Eosinophils Absolute Auto 200 /uL (0-450); Eosinophils Percent Auto 3.4 % (2-4); Hematocrit 47.9 % (41-53); Hemoglobin 16.6 g/dL (13.5-17.5); Lymphocytes Absolute Auto 1200 /uL (1100-4500); Lymphocytes Percent Auto 20.2 % (25-40); Mean Corpuscular HGB Conc 34.6 % (30-36); Mean Corpuscular Hemoglobin 31.5 PG (26-34); Monocytes Absolute Auto 500 /uL (0-900); Monocytes Percent Auto 8.7 % (3-14); Neutrophils Absolute Auto 4100 /uL (1500-7000); Neutrophils Percent Auto 67.3 % (50-75); Platelet Count 157 X10^3/uL (150-400); Red Blood Cell Count 5.27 X10^6/uL (4.5-5.9); Red Cell Distribution Width 14.6 % (11.6-14.8); White Blood Cell Count 6.1 X10^3/uL (4.5-11.0)
[2023-09-13 09:54] LABS: BUN Creatinine Ratio 22.9 (6-22); Blood Urea Nitrogen 19 mg/dL (9-20); Calcium 10.1 mg/dL (8.4-10.2); Carbon Dioxide 27 mmol/L (22-32); Chloride 105 mmol/L (98-107); Cholesterol 172 mg/dL (140-199); Estimated Glomerular Filt Rate > 60 mL/min (>60); Glucose 100 mg/dL (80-110); HDL Cholesterol 49 mg/dL (40-60); HEMOLYSIS < 15 (0-50); LDL Cholesterol Calculated 96 mg/dL (<100); Potassium 4.3 mmol/L (3.4-5.1); Sodium 139 mmol/L (137-145); Triglycerides 134 mg/dL (35-150)
== END ==
PROVIDERS: Family Provider Internal Medicine; Referring Provider Internal Medicine Cardiovascular Disease; Visit Provider Internal Medicine Cardiovascular Disease
DX: E78.5 Hyperlipidemia, unspecified (principal); I10 Essential (primary) hypertension
CPT/HCPCS: 36415; 80048; 80061; 85025

== ENCOUNTER 2024-07-03 17:49 | Emergency (ER) | payer MEDICARE, OTHER, SELFPAY ==
[2023-05-24 21:17] VITALS: BMI 40.6
[2024-07-03 17:57] VITALS: BP 193/84; PULSE 74; RESP 16; TEMP 36.7; O2SAT 98; BMI 42.0
[2024-07-03 18:28] LABS: Add Manual Diff / Slide Review NO; Basophils Absolute Auto 0 /uL (0-100); Basophils Percent Auto 0.4 % (0-2); Eosinophils Absolute Auto 200 /uL (0-450); Eosinophils Percent Auto 2.5 % (2-4); Hemoglobin 15.9 g/dL (13.5-17.5); Lymphocytes Absolute Auto 900 /uL (1100-4500); Lymphocytes Percent Auto 13.9 % (25-40); Mean Corpuscular HGB Conc 34.6 % (30-36); Mean Corpuscular Hemoglobin 32.1 PG (26-34); Mean Corpuscular Volume 92.7 fL (80-100); Monocytes Absolute Auto 500 /uL (0-900); Monocytes Percent Auto 7.2 % (3-14); Neutrophils Absolute Auto 4800 /uL (1500-7000); Platelet Count 139 X10^3/uL (150-400); Red Blood Cell Count 4.96 X10^6/uL (4.5-5.9); Red Cell Distribution Width 13.9 % (11.6-14.8); White Blood Cell Count 6.3 X10^3/uL (4.5-11.0)
[2024-07-03 18:38] LABS: Alanine Aminotransferase 42 IU/L (<50); Albumin Globulin Ratio 1.4 (1.0-2.8); Alkaline Phosphatase 87 U/L (38-126); Aspartate Aminotransferase 34 IU/L (17-59); BUN Creatinine Ratio 20.4 (6-22); Bilirubin Total 0.7 mg/dL (0.2-1.3); Blood Urea Nitrogen 19 mg/dL (9-20); Calcium 9.9 mg/dL (8.4-10.2); Carbon Dioxide 26 mmol/L (22-32); Chloride 107 mmol/L (98-107); Estimated Glomerular Filt Rate > 60 mL/min (>60); Globulin 2.9 g/dL (1.7-4.1); Glucose 193 mg/dL (80-110); HEMOLYSIS 41 (0-50); Sodium 139 mmol/L (137-145); Total Protein 6.9 g/dL (6.3-8.2)
[2024-07-03 19:31] VITALS: BP 189/92
[2024-07-03 19:34] VITALS: PULSE 92; O2SAT 96
[2024-07-03 19:39] VITALS: TEMP 36.8
[2024-07-03 20:00] VITALS: BP 169/77; PULSE 83; O2SAT 96
[2024-07-03 20:03] LABS: Urine Volume 10mL (spun)
[2024-07-03 20:04] LABS: Bacteria Urine None Seen; Culture Indicated Urine Specimen Cultured; RBC Urine 10-30/HPF (0-5/HPF); Squamous Epithelial Cell Urine 0-1 /HPF (0-5/HPF); WBC Urine 5-10/HPF (0-5/HPF)
--- NOTE | 2024-07-03 20:11 | ED_ITS ---
HPI - Male Genitourinary General Chief complaint: Urogenital-Male Stated complaint: kidney stones Time Seen by Provider: 07/03/24 19:47 Source: patient Mode of arrival: Ambulatory History of Present Illness HPI Narrative: 69-year-old male presents for evaluation of possible kidney stone. He reports several hours of left-sided groin pain, similar to previous episodes of kidney stones. He states that he has had to have lithotripsy on stones in the past. Patient did state that he went to use the restroom just prior to driving to the emergency department. He states that he passed a small pebble like object that was grainy, and he thinks that he may have passed his stone already. He is currently pain-free. Related Data Home Medications Medication Instructions Recorded Confirmed alfuzosin 10 mg tablet,extended 10 mg PO BEDTIME 05/24/23 05/26/23 release 24 hr allopurinol 300 mg tablet 300 mg PO DAILY 05/24/23 05/26/23 amlodipine 10 mg tablet 10 mg PO BEDTIME 05/24/23 05/26/23 aspirin 81 mg tablet,delayed 81 mg PO BID 05/24/23 05/26/23 release atorvastatin 40 mg tablet 40 mg PO BEDTIME 05/24/23 05/26/23 finasteride 5 mg tablet 5 mg PO BEDTIME 05/24/23 05/26/23 lisinopril 40 mg tablet 40 mg PO BEDTIME 05/24/23 05/26/23 metoprolol succinate 50 mg 50 mg PO DAILY 05/24/23 05/26/23 tablet,extended release 24 hr Allergies Allergy/AdvReac Type Severity Reaction Status Date / Time No Known Drug Allergies Allergy Verified 07/03/24 17:57 Patient History Social History household members: spouse Smoking Status: Former smoker Smoking Status: Former smoker alcohol intake frequency: a few times a month Alcohol type: beer Substance Use Type: does not use Exam Initial Vital Signs Initial Vital Signs: Vital Signs Temperature 98.0 F 07/03/24 17:57 Pulse Rate 74 07/03/24 17:57 Respiratory Rate 16 07/03/24 17:57 Blood Pressure 193/84 H 07/03/24 17:57 Pulse Oximetry 98 07/03/24 17:57 Oxygen Delivery Method Room Air 07/03/24 17:57 Const: Awake, alert, no acute distress, nontoxic appearing Cardiac: regular rate, regular rhythm RESP: unlabored, clear bilaterally, no wheezing GI: Soft, nontender, nondistended MSK: No CVA tenderness, full range of motion, pulses equal Skin: Warm, Dry, intact, no rashes Neuro: AO x3, CN II-XII grossly intact, moves all extremities Course Orders Ordered: ED Orders 07/03/24 18:10 CMP [Comprehensive Metabolic Panel] Stat Complete Blood Count AUTO DIFF Stat 07/03/24 19:32 Urine Culture Stat Urine Microscopic Stat Vital Signs Vital signs: Vital Signs - 8 hr 07/03/24 17:57 07/03/24 19:31 07/03/24 19:34 Temperature 98.0 F Pulse Rate 74 92 H Respiratory Rate 16 Blood Pressure 193/84 H 189/92 H Pulse Oximetry 98 96 Oxygen Delivery Method Room Air 07/03/24 19:39 Temperature 98.2 F Pulse Rate Respiratory Rate Blood Pressure Pulse Oximetry Oxygen Delivery Method MDM - Male Genitourinary Lab Data 07/03/24 18:10 07/03/24 18:10 Labs: Lab Results 07/03/24 07/03/24 Range/Units 18:10 19:32 WBC 6.3 (4.5-11.0) X10^3/uL RBC 4.96 (4.5-5.9) X10^6/uL Hgb 15.9 (13.5-17.5) g/dL Hct 46.0 (41-53) % MCV 92.7 (80-100) fL MCH 32.1 (26-34) PG MCHC 34.6 (30-36) % RDW 13.9 (11.6-14.8) % Plt Count 139 L (150-400) X10^3/uL Neut % (Auto) 76.0 H (50-75) % Lymph % (Auto) 13.9 L (25-40) % [place] % (Auto) 7.2 (3-14) % Eos % (Auto) 2.5 (2-4) % Baso % (Auto) 0.4 (0-2) % Neut # (Auto) 4800 (4535-0162) /uL Lymph # (Auto) 900 L (8244-5855) /uL [place] # (Auto) 500 (0-900) /uL Eos # (Auto) 200 (0-450) /uL Baso # (Auto) 0 (0-100) /uL Sodium 139 (137-145) mmol/L Potassium 4.0 (3.4-5.1) mmol/L Chloride 107 (98-107) mmol/L Carbon Dioxide 26 (22-32) mmol/L BUN 19 (9-20) mg/dL Creatinine 0.93 (0.66-1.25) mg/dL Estimated GFR > 60 (>60) mL/min BUN/Creatinine Ratio 20.4 (6-22) Glucose 193 H (80-110) mg/dL Calcium 9.9 (8.4-10.2) mg/dL Total Bilirubin 0.7 (0.2-1.3) mg/dL AST 34 (17-59) IU/L ALT 42 (<50) IU/L Alkaline Phosphatase 87 (38-126) U/L Total Protein 6.9 (6.3-8.2) g/dL Albumin 4.0 (3.5-5.0) g/dL Globulin 2.9 (1.7-4.1) g/dL Albumin/Globulin Ratio 1.4 (1.0-2.8) Urine RBC 10-30/hpf H (0-5/HPF) Urine WBC 5-10/hpf H (0-5/HPF) Ur Squamous Epith Cells 0-1 /hpf (0-5/HPF) Urine Bacteria None seen (None) Ur Culture Indicated? Specimen cultured Vol Urine Centrifuged 10ml (spun) Urine Dip Bedside Urine Glucose Negative Bedside Urine Bilirubin - Negative Bedside Urine Ketone - Negative Urine Specific [place] 1.025 Bedside Urine Occult Blood +++ Bedside Urine pH 6 Bedside Urine Protein +/- 15 Bedside Urine Urobilinogen - Negative Bedside Urine Nitrite - Negative Bedside Urine Leukocytes +/- 15 Esterase MDM Narrative Medical decision making narrative: Well-appearing patient with symptoms that were concerning for another kidney stone. Patient reports passing a pebble like object in his urine just before presentation to the emergency department. He states that he thinks that he passed the stone already. Pain-free currently and has been since the passage of the pebble. Physical exam is entirely unremarkable, no CVA tenderness, abdomen soft. Laboratory work is reviewed, no leukocytosis, normal kidney function. We will monitor patient for return of pain, however since pain has resolved and he likely has passed the stone no CT imaging will be ordered at this time. Patient monitored, continues to be pain-free. Patient comfortable with imaging not being performed at this time. He was counseled that if his pain returns then he should come back to the ER for imaging, but it was likely that he passed his stone already. Discharge Plan Departure Patient Disposition: Home Clinical Impression: Renal colic Instructions: DI for Kidney Stones Activity Restrictions/Additional Instructions: I am glad that you seemed to have passed her stone on your own. Follow up as needed with your urologist. If your pain returns or worsens I do recommend coming back to the ER for additional evaluation, however at this time your blood work is normal. Prescriptions: No Action atorvastatin 40 mg tablet 40 mg PO BEDTIME metoprolol succinate 50 mg tablet extended release 24 hr 50 mg PO DAILY aspirin 81 mg tablet,delayed release (DR/EC) 81 mg PO BID amlodipine 10 mg tablet 10 mg PO BEDTIME lisinopril 40 mg tablet 40 mg PO BEDTIME finasteride 5 mg tablet 5 mg PO BEDTIME alfuzosin 10 mg tablet extended release 24 hr 10 mg PO BEDTIME allopurinol 300 mg tablet 300 mg PO DAILY Referrals: Provider,Humberto JACKMAN [Primary Care Provider] - Stand Alone Forms: Patient Portal/API
[2024-07-03 20:30] VITALS: BP 147/74; PULSE 85; O2SAT 95
== END 2024-07-03 20:52 | disposition home or self-care (01) ==
PROVIDERS: Emergency Provider Emergency Medicine; Family Provider Internal Medicine
DX: N23 Unspecified renal colic (principal); Z79.899 Other long term (current) drug therapy
CPT/HCPCS: 80053; 81003; 81015; 85025; 87086; 99282; 99283

== ENCOUNTER 2024-08-05 18:43 | Emergency (ER) | payer MEDICARE, OTHER, SELFPAY ==
[2023-05-24 21:17] VITALS: BMI 40.6
[2024-08-05] VITALS (11 sets, daily range): BP systolic 141–195; BP diastolic 79–93; PULSE 77–93; RESP 16–24; TEMP 36.7; O2SAT 96–98; BMI 41.5
--- NOTE | 2024-08-05 18:45 | EKG_ITS ---
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
--- NOTE | 2024-08-05 18:45 | DI.RAD.S_ITS ---
PROCEDURE: XR CHEST 1V INDICATIONS: Chest pain TECHNIQUE: One view of the chest was acquired. COMPARISON: [facility], CR, XR CHEST 1V, 05/24/2023, 16:28. FINDINGS: Surgical changes and devices: None. Lungs and pleura: Lungs are clear. No pleural effusions or pneumothorax. Mediastinum: Mediastinal contours appear normal. Heart size is normal. Bones and chest wall: No suspicious bony lesions. Overlying soft tissues appear unremarkable. IMPRESSION: No acute cardiopulmonary abnormality is seen. Approved by: Susy Latif M.D.,Ph.D. on 08/05/2024 at 19:34
--- NOTE | 2024-08-05 19:02 | ED_ITS ---
HPI - Chest Pain General Chief Complaint: Chest Pain Stated Complaint: Chest Discomfort Time Seen by Provider: 08/05/24 18:44 Source: patient Mode of arrival: Ambulatory Limitations: no limitations History of Present Illness HPI narrative: Patient is a 69-year-old male. A known history of coronary artery disease and hypertension. Does take medications for hypertension. Stated that his sometime this morning he started noticing that he was having some chest pressure. He really noticed it about 1100 hours when he was taking a shower. He was had continued discomfort since 1100 hours this morning but there have been periods of time in his worse than others. Not worse with palpation or movement. No coughing. No shortness of breath. Pain worse with palpation. No radiation of the pain. He states he has had 2 heart attacks in the past. This feels different from his prior heart attack chest discomfort. Related Data Home Medications Medication Instructions Recorded Confirmed alfuzosin 10 mg tablet,extended 10 mg PO BEDTIME 05/24/23 05/26/23 release 24 hr allopurinol 300 mg tablet 300 mg PO DAILY 05/24/23 05/26/23 amlodipine 10 mg tablet 10 mg PO BEDTIME 05/24/23 05/26/23 aspirin 81 mg tablet,delayed 81 mg PO BID 05/24/23 05/26/23 release atorvastatin 40 mg tablet 40 mg PO BEDTIME 05/24/23 05/26/23 finasteride 5 mg tablet 5 mg PO BEDTIME 05/24/23 05/26/23 lisinopril 40 mg tablet 40 mg PO BEDTIME 05/24/23 05/26/23 metoprolol succinate 50 mg 50 mg PO DAILY 05/24/23 05/26/23 tablet,extended release 24 hr Allergies Allergy/AdvReac Type Severity Reaction Status Date / Time No Known Drug Allergies Allergy Verified 07/03/24 17:57 Review of Systems Review of Systems ROS Unobtainable: All systems reviewed & are unremarkable except as noted in HPI and below Patient History Social History household members: spouse Smoking Status: Former smoker Smoking Status: Former smoker alcohol intake frequency: a few times a month Alcohol type: beer Substance Use Type: does not use Exam Initial Vital Signs Initial Vital Signs: Vital Signs Pulse Oximetry 98 08/05/24 18:46 Const General: cooperative, comfortable and No ill appearing HENID Head: normal to inspection and normocephalic Chest Chest: No crepitus and No tenderness Resp Effort & Inspection: normal respiratory effort Auscultation: clear to auscultation bilaterally Cardio Rate: regular rate Rhythm: regular rhythm Neuro General: patient alert, patient awake and moves all extremities Extrem General: edema Course Orders Ordered: ED Orders 08/05/24 18:45 XR chest 1V Stat EKG-12 Lead Stat 08/05/24 18:55 Complete Blood Count AUTO DIFF Stat Comprehensive Metabolic Panel Stat Lipase Stat Magnesium Stat Troponin & CK Cardiac Panel Stat 08/05/24 21:55 Troponin & CK Cardiac Panel Stat Vital Signs Vital signs: Vital Signs - 8 hr 08/05/24 18:46 08/05/24 18:47 08/05/24 18:47 Temperature Pulse Rate 93 H Respiratory Rate Blood Pressure 195/93 H Pulse Oximetry 98 96 Oxygen Delivery Method 08/05/24 18:50 08/05/24 19:00 08/05/24 19:00 Temperature 98.1 F Pulse Rate 88 80 Respiratory Rate 16 24 Blood Pressure 195/93 H 180/89 H Pulse Oximetry 96 98 Oxygen Delivery Method Room Air 08/05/24 19:30 08/05/24 19:31 08/05/24 19:31 Temperature Pulse Rate 79 79 Respiratory Rate 19 21 Blood Pressure 146/90 H Pulse Oximetry 98 97 Oxygen Delivery Method 08/05/24 20:00 08/05/24 20:00 08/05/24 20:30 Temperature Pulse Rate 79 77 Respiratory Rate 21 18 Blood Pressure 151/85 H Pulse Oximetry 97 98 Oxygen Delivery Method 08/05/24 20:30 08/05/24 21:00 08/05/24 21:00 Temperature Pulse Rate 78 Respiratory Rate 19 Blood Pressure 141/82 H 157/81 H Pulse Oximetry 97 Oxygen Delivery Method 08/05/24 21:30 08/05/24 21:30 08/05/24 22:00 Temperature Pulse Rate 79 Respiratory Rate 19 Blood Pressure 148/79 H 151/83 H Pulse Oximetry 98 Oxygen Delivery Method 08/05/24 22:00 Temperature Pulse Rate 80 Respiratory Rate 20 Blood Pressure Pulse Oximetry 97 Oxygen Delivery Method MDM - Chest Pain Lab Data Attestation: I reviewed the patient's lab results. 08/05/24 18:55 08/05/24 18:55 Labs: Lab Results 08/05/24 08/05/24 Range/Units 18:55 21:55 WBC 9.0 (4.5-11.0) X10^3/uL RBC 5.09 (4.5-5.9) X10^6/uL Hgb 16.4 (13.5-17.5) g/dL Hct 47.4 (41-53) % MCV 93.2 (80-100) fL MCH 32.2 (26-34) PG MCHC 34.5 (30-36) % RDW 14.3 (11.6-14.8) % Plt Count 160 (150-400) X10^3/uL Neut % (Auto) 70.4 (50-75) % Lymph % (Auto) 17.4 L (25-40) % [place] % (Auto) 9.0 (3-14) % Eos % (Auto) 2.8 (2-4) % Baso % (Auto) 0.4 (0-2) % Neut # (Auto) 6300 (8467-1422) /uL Lymph # (Auto) 1600 (4932-0092) /uL [place] # (Auto) 800 (0-900) /uL Eos # (Auto) 300 (0-450) /uL Baso # (Auto) 0 (0-100) /uL Sodium 139 (137-145) mmol/L Potassium 4.0 (3.4-5.1) mmol/L Chloride 106 (98-107) mmol/L Carbon Dioxide 25 (22-32) mmol/L BUN 17 (9-20) mg/dL Creatinine 0.86 (0.66-1.25) mg/dL Estimated GFR > 60 (>60) mL/min BUN/Creatinine Ratio 19.8 (6-22) Glucose 113 H (80-110) mg/dL Calcium 9.9 (8.4-10.2) mg/dL Magnesium 1.8 (1.6-2.3) mg/dL Total Bilirubin 0.8 (0.2-1.3) mg/dL AST 37 (17-59) IU/L ALT 43 (<50) IU/L Alkaline Phosphatase 106 (38-126) U/L Total Creatine Kinase 76 77 (55-170) U/L Troponin I < 0.012 < 0.012 (0.01-0.034) ng/mL Total Protein 7.4 (6.3-8.2) g/dL Albumin 4.4 (3.5-5.0) g/dL Globulin 3.0 (1.7-4.1) g/dL Albumin/Globulin Ratio 1.5 (1.0-2.8) Lipase 46 (23-300) U/L Imaging Data Chest x-ray: Radiologist's Impression: PROCEDURE: XR CHEST 1V INDICATIONS: Chest pain TECHNIQUE: One view of the chest was acquired. COMPARISON: [facility], , XR CHEST 1V, 05/24/2023, 16:28. FINDINGS: Surgical changes and devices: None. Lungs and pleura: Lungs are clear. No pleural effusions or pneumothorax. Mediastinum: Mediastinal contours appear normal. Heart size is normal. Bones and chest wall: No suspicious bony lesions. Overlying soft tissues appear unremarkable. IMPRESSION: No acute cardiopulmonary abnormality is seen. ECG Data Attestation: I personally reviewed and interpreted this ECG as follows: Interpretation: Sinus rhythm Ventricular rate of [address] T wave changes MDM Narrative Medical decision making narrative: Patient has had persistent symptoms for greater than 6 hours with 2- troponins and a nonischemic EKG. Chest x-ray is unremarkable as well. He states this does feel different than his prior discomfort when he was had heart attack. 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 He was given return precautions. He expressed understanding and agreement with plan. 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 Return to the emergency department for new symptoms. Prescriptions: No Action atorvastatin 40 mg tablet 40 mg PO BEDTIME metoprolol succinate 50 mg tablet extended release 24 hr 50 mg PO DAILY aspirin 81 mg tablet,delayed release (DR/EC) 81 mg PO BID amlodipine 10 mg tablet 10 mg PO BEDTIME lisinopril 40 mg tablet 40 mg PO BEDTIME finasteride 5 mg tablet 5 mg PO BEDTIME alfuzosin 10 mg tablet extended release 24 hr 10 mg PO BEDTIME allopurinol 300 mg tablet 300 mg PO DAILY Referrals: Provider,Whidbey GASPER [Primary Care Provider] - Stand Alone Forms: Patient Portal/API
[2024-08-05 19:03] LABS: Add Manual Diff / Slide Review NO; Basophils Absolute Auto 0 /uL (0-100); Basophils Percent Auto 0.4 % (0-2); Eosinophils Absolute Auto 300 /uL (0-450); Eosinophils Percent Auto 2.8 % (2-4); Hematocrit 47.4 % (41-53); Hemoglobin 16.4 g/dL (13.5-17.5); Lymphocytes Absolute Auto 1600 /uL (1100-4500); Lymphocytes Percent Auto 17.4 % (25-40); Mean Corpuscular HGB Conc 34.5 % (30-36); Mean Corpuscular Hemoglobin 32.2 PG (26-34); Mean Corpuscular Volume 93.2 fL (80-100); Monocytes Absolute Auto 800 /uL (0-900); Neutrophils Absolute Auto 6300 /uL (1500-7000); Neutrophils Percent Auto 70.4 % (50-75); Platelet Count 160 X10^3/uL (150-400); Red Blood Cell Count 5.09 X10^6/uL (4.5-5.9); Red Cell Distribution Width 14.3 % (11.6-14.8)
[2024-08-05 19:12] LABS: Creatine Kinase 76 U/L (55-170); Lipase 46 U/L (23-300); Magnesium 1.8 mg/dL (1.6-2.3)
[2024-08-05 19:13] LABS: Alanine Aminotransferase 43 IU/L (<50); Albumin 4.4 g/dL (3.5-5.0); Albumin Globulin Ratio 1.5 (1.0-2.8); Alkaline Phosphatase 106 U/L (38-126); Aspartate Aminotransferase 37 IU/L (17-59); BUN Creatinine Ratio 19.8 (6-22); Bilirubin Total 0.8 mg/dL (0.2-1.3); Blood Urea Nitrogen 17 mg/dL (9-20); Calcium 9.9 mg/dL (8.4-10.2); Carbon Dioxide 25 mmol/L (22-32); Chloride 106 mmol/L (98-107); Estimated Glomerular Filt Rate > 60 mL/min (>60); Glucose 113 mg/dL (80-110); HEMOLYSIS < 15 (0-50); Sodium 139 mmol/L (137-145); Total Protein 7.4 g/dL (6.3-8.2)
[2024-08-05 19:24] LABS: Troponin I < 0.012 ng/mL (0.01-0.034)
--- NOTE | 2024-08-05 21:59 | PC.NURSE ---
pt states his arms and across his chest continue to ache with movement but he feels like it is more muscular
[2024-08-05 22:14] LABS: Creatine Kinase 77 U/L (55-170)
[2024-08-05 22:27] LABS: Troponin I < 0.012 ng/mL (0.01-0.034)
== END 2024-08-05 22:40 | disposition home or self-care (01) ==
PROVIDERS: Emergency Provider Emergency Medicine; Family Provider Internal Medicine
DX: R07.89 Other chest pain (principal); I10 Essential (primary) hypertension; I25.10 Atherosclerotic heart disease of native coronary artery without angina pectoris; Z79.899 Other long term (current) drug therapy
CPT/HCPCS: 36415; 71045; 80053; 82550; 83690; 83735; 84484; 85025; 93005; 93010; 99284